=== PATIENT | female | born 1960 | race Caucasian/White ===

== ENCOUNTER 2023-07-21 11:41 | Inpatient (IN) ==
[2023-07-21 12:45] LABS: Hematocrit (blood only) 37.6 % (37.0-47.0); Hemoglobin 12.6 g/dl (12.0-16.0); Mean Corpuscular Hgb Conc 33.5 g/dL (32.0-36.0); Mean Corpuscular Volume 86.4 fL (80.0-100.0); Mean Platelet Volume 9.5 fL (9.4-12.4); Platelet Count 246 K/uL (130-400); RDW Coefficient of Variation 13.6 % (11.5-14.5); RDW Standard Deviation 43.2 fL (36.4-46.3); Red Blood Count 4.35 M/uL (4.20-5.40); White Blood Count 3.34 K/ul (4.8-10.8)
--- NOTE | 2023-07-21 12:48 | XRay Report ---
XR chest 1V not portable CLINICAL HISTORY: Chest pain, nonspecific TECHNIQUE: Single frontal radiograph of the chest was obtained. Comparison: None available at the time of this dictation. FINDINGS: No lines and tubes are seen. The cardiomediastinal silhouette is normal. Reticular interstitial opaci ties are seen. No evidence of pleural effusion or pneumothorax. IMPRESSION: Reticular interstitial opacities are nonspecific. Interstitial edema or bronchitis cannot be excluded . ACT 112: Negative or not required by law. Electronically signed by: Mark Lopez M.D. 07/21/2023 12:47 PM
[2023-07-21 13:07] LABS: Alanine Aminotransferase 10 U/L (7-52); Albumin Globulin Ratio 1.1 (0.9-2); Alkaline Phosphatase 94 U/L (34-104); Anion Gap 8 (3-11); Aspartate Aminotransferase 21 U/L (13-39); BUN Creatinine Ratio 10.1 (10-20); Bilirubin,Total 0.5 mg/dl (0.2-1.0); Blood Urea Nitrogen 7 mg/dl (6-23); Calcium 9.1 mg/dl (8.6-10.3); Carbon Dioxide 23 mmol/L (21-32); Chloride 106 mmol/L (98-107); Est GFR (African American) 106.6 ml/min; Globulin 3.8 gm/dl (2.5-4.0); Glucose 105 mg/dl (70-99(Fasting)); Sodium 137 mmol/L (136-145); Total Protein 7.8 gm/dl (6.0-8.3)
[2023-07-21 13:08] LABS: INR 3.3 (0.9-1.1); Partial Thromboplastin Ratio 1.7; Partial Thromboplastin Time 49 Seconds (21-31); Prothrombin Time 33.2 Seconds (9.0-12.0)
[2023-07-21 13:13] LABS: Troponin I High Sensitivity 3.9 pg/ml (0-14)
[2023-07-21 13:18] LABS: Basophils # (auto) 0.02 K/uL (0.00-0.20); Basophils % (auto) 0.6 %; Immature Granulocytes # (auto) 0.01 K/uL (0.01-0.20); Immature Granulocytes % (auto) 0.3 %; Monocytes # (auto) 0.23 K/uL (0.11-0.59); Monocytes % (auto) 6.9 %; Neutrophils # (auto) 2.18 K/uL (1.40-6.50); Neutrophils % (auto) 65.2 %; Polychromasia 1+; Tear Drop Cells 1+
[2023-07-21] MEDS ORDERED: FUROSEMIDE 40 MG/4 ML VIAL IV ONE (13:40)
--- NOTE | 2023-07-21 13:56 | Electrocardiogram Report ---
Test Reason : Blood Pressure : / mmHG Vent. Rate : 096 BPM Atrial Rate : 096 BPM P-R Int : 150 ms QRS Dur : 112 ms QT Int : 378 ms P-R-T Axes : 044 079 006 degrees QTc Int : 477 ms Normal sinus rhythm Right bundle branch block Abnormal ECG No previous ECGs available Confirmed by Hernan Meléndez ([id number]) on 07/21/2023 1:55:25 PM Referred By: Confirmed By:Hernan Meléndez
[2023-07-21] MEDS ORDERED: MAGNESIUM HYDROXIDE SUSP 30 ML UDC PO PRN (15:32)
[2023-07-21] MEDS ORDERED: ONDANSETRON INJ 2 MG/ML 2 ML VIAL IV PRN (15:32)
[2023-07-21] MEDS ORDERED: ALUMINUM/MAGNESIUM SUSP 30 ML UDC PO PRN (15:32)
[2023-07-21] MEDS ORDERED: ACETAMINOPHEN 325 MG TAB PO PRN (15:32)
[2023-07-21] MEDS ORDERED: POLYETHYLENE (MIRALAX) 17 GM PACK PO PRN (15:32)
--- NOTE | 2023-07-21 16:05 | History & Physical Report ---
Date of Service July 21, 2023 Assessment & Plan (1) COVID: (2) Hypertensive heart disease with chronic diastolic congestive heart failure: (3) PAF (paroxysmal atrial fibrillation): (4) COPD (chronic obstructive pulmonary disease): (5) Type 2 diabetes mellitus: (6) Chronic anticoagulation: (7) Factor V Leiden: (8) Nocturnal hypoxemia: (9) History of deep venous thrombosis: (10) Hypertension: (11) GERD (gastroesophageal reflux disease): (12) Hypothyroidism: Plan Ms. Mohan is a 63 year old female that presented to the ED with complaints of SOB. She has been feeling ill for the last 14 days; but remarks worsening over the past 48 hours with noted orthopnea and hypoxia reportedly SpO2 into the mid 70s. She tested positive for COVID at home 5 days ago. She does report a cough but is not bringing anything up. She typically wears oxygen at night historically and has a home oxygen sensor. She reports that she has not taken her Lasix for the past 5 days as she thought it was making her breathing worse. Additional past medical history includes restrictive lung disease, factor V Leiden, diastolic CHF, paroxysmal A-fib, HTN, [id number]-[id number] diabetes, hypothyroidism, and hyperlipidemia. Also do note patient has a known history of viral myocarditis. Patient notes that she is to have an outpatient sleep study. Chest x-ray negative for acute cardio pulmonary disease. No leukocytosis, otherwise lab work unremarkable. Troponin negative. Last echocardiogram 10/2022 with LV wall motion normal EF 55 to 60% with mild MR/TR grade 1 diastolic dysfunction. Patient denies headache, dizziness, visual or auditory changes, abdominal pain o r tenderness, chest pain or palpitations, recent falls or trauma. On examination, patient is sitting in a recliner chair in no apparent distress. She is able to hold full meaningful conversation and speak in full complete sentences without becoming dyspneic. She has some hypervolemia and lower extremities left greater than right. She claims that her left leg is typically greater than her right, related to her history of DVT. Patient quit smoking last year. No alcohol or recreational drug use. Suspect patient has been noncompliant with her heart failure medications due to illness. No overt concerns for flash pulmonary edema or decompensated heart failure and suspect that she will return to baseline with resuming her diuretics. Will also continue to supportively treat her COVID symptoms with flutter valve, incentive spirometry and Mucinex. Will obtain bio fire for diagnosis confirmation and BNP. We did talk extensively with the patient regarding taking diuretics and reevaluating how she feels with a goal to return home today however she did state that she feels too weak to return home and does not want to get home and come right back to the ER. Suspect admission 1 to 2 days. Hypertensive heart disease with CHF: Generalized weakness: Acute Reportedly has missed five doses of her home Lasix during her illness Suspect causing her symptoms Lasix 40 mg IV ordered in ED; will reassess if add'l dosing is necessary Resume home Lasix dosing tomorrow if able Suspect hospital stay 1-2 days COVID-positive: Acute Tested positive with at home test 07/19/23 Supportive treatment Mucinex p.o. ordered Flutter valve and incentive spirometry ordered Type 2 diabetes mellitus: Chronic Cei-yoxjngo-xojgtwhlu Takes metformin; hold while inpt Check A1C in AM Place on FSBS ACHS SSI HTN: Chronic Takes Lisinopril;continue Paroxysmal A-fib: Chronic Takes metoprolol and Coumadin; continue History of DVT: Chronic anticoagulation: Chronic Takes Coumadin; continue Therapeutic INR 3.3 Factor V Leiden: Follows with heme-onc No anemia noted hemoglobin 12.6 COPD: Uses breakthrough inhalers but does not appear compliant Reportedly to have a sleep study as outpatient Hypothyroidism: Chronic stable Takes levothyroxine; continue GERD: Chronic Takes pantoprazole; continue Disposition: PCP: Dr. Pierce CODE STATUS: Full code VTE prophylaxis: On Coumadin I spent a total of 87 minutes coordinating, documenting, and providing care for this patient excluding time spent in the performance of separately billed services. All of the aforementioned completed while collaborating with the assigned attending physician for a full treatment plan. Please see their addendum for further details. History of Present Illness Chief Complaint: SOB Primary Care Provider: Elaine Pierce DO Ms. Mohan is a 63 year old female that presented to the ED with complaints of SOB. She has been feeling ill for the last 14 days; but remarks worsening over the past 48 hours with noted orthopnea and hypoxia reportedly SpO2 into the mid 70s. She tested positive for COVID at home 5 days ago. She does report a cough but is not bringing anything up. She typically wears oxygen at night historically and has a home oxygen sensor. She reports that she has not taken her Lasix for the past 5 days as she thought it was making her breathing worse. Additional past medical history includes restrictive lung disease, factor V Leiden, diastolic CHF, paroxysmal A-fib, HTN, iao-rvkdjux-lloovvxwk diabetes, hypothyroidism, and hyperlipidemia. Also do note patient has a known history of viral myocarditis. Patient notes that she is to have an outpatient sleep study. Chest x-ray negative for acute cardio pulmonary disease. No leukocytosis, otherwise lab work unremarkable. Troponin negative. Last echocardiogram 10/2022 with LV wall motion normal EF 55 to 60% with mild MR/TR grade 1 diastolic dysfunction. Patient denies headache, dizziness, visual or auditory changes, abdominal pain or tenderness, chest pain or palpitations, recent falls or trauma. On examination, patient is sitting in a recliner chair in no apparent distress. She is able to hold full meaningful conversation and speak in full complete sentences without becoming dyspneic. She has some hypervolemia and lower e xtremities left greater than right. She claims that her left leg is typically greater than her right, related to her history of DVT. Patient quit smoking last year. No alcohol or recreational drug use. Suspect patient has been noncompliant with her heart failure medications due to illness. No overt concerns for flash pulmonary edema or decompensated heart failure and suspect that she will return to baseline with resuming her diuretics. Will also continue to supportively treat her COVID symptoms with flutter valve, incentive spirometry and Mucinex. Will obtain bio fire for d iagnosis confirmation and BNP. We did talk extensively with the patient regarding taking diuretics and reevaluating how she feels with a goal to return home today however she did state that she feels too weak to return home and does not want to get home and come right back to the ER. Suspect admission 1 to 2 days. Patient will be admitted for further evaluation and management. Please see A/P for further details. Allergies Allergy/AdvReac Type Severity Reaction Status Date / Time clindamycin Allergy Hives Verified 05/15/23 12:50 Penicillins Allergy Hives Verified 05/15/23 12:50 Sulfa (Sulfonamide Allergy Hives Verified 05/15/23 12:50 Antibiotics) Home Medications Medication Instructions Recorded Confirmed Type albuterol sulfate 2.5 mg/3 mL 2.5 mg inhalation Q4H PRN 05/15/23 07/21/23 History (0.083 %) solution for nebulization Shortness Of Breath Or Wheezing albuterol sulfate 90 mcg/actuation 2 puff inhalation Q6H PRN 05/15/23 07/21/23 History aerosol inhaler Shortness Of Breath Or Wheezing ascorbic acid (vitamin C) 500 mg 500 mg PO QAM 05/15/23 07/21/23 History chewable tablet cetirizine 10 mg tablet (Zyrtec) 10 mg PO QAM 05/15/23 07/21/23 History cholecalciferol (vitamin D3) 1,250 50,000 unit PO .COMPLEX 05/15/23 07/21/23 History mcg (50,000 unit) capsule fluticasone propionate 50 2 spray intranasal BID 05/15/23 07/21/23 History mcg/actuation nasal spray,suspension furosemide 40 mg tablet (Lasix) 40 mg PO QAM 05/15/23 07/21/23 History gabapentin 600 mg tablet 600 mg PO TID 05/15/23 07/21/23 History ketoconazole 2 % shampoo 1 applic topical Q3D 05/15/23 07/21/23 History levothyroxine 50 mcg tablet 50 mcg PO DAILYBB 05/15/23 07/21/23 History lisinopril 2.5 mg tablet 2.5 mg PO QAM 05/15/23 07/21/23 History lorazepam 1 mg tablet 1 mg PO HS PRN anxiety/sleep 05/15/23 07/21/23 History ondansetron 4 mg disintegrating 4 mg PO Q8H PRN Nausea 05/15/23 07/21/23 History tablet pantoprazole 40 mg tablet,delayed 40 mg PO QAM 05/15/23 07/21/23 History release (Protonix) sucralfate 1 gram tablet (Carafate) 1 g PO TID 05/15/23 07/21/23 History warfarin 5 mg tablet See Rx Instructions PO DAILY 05/15/23 07/21/23 History metoprolol succinate 50 mg 50 mg PO BID #180 tabs 07/13/23 07/21/23 Rx tablet,extended release 24 hr atorvastatin 10 mg tablet 10 mg PO 3XWK 07/21/23 07/21/23 History bacitracin zinc 500 unit/gram 1 applic topical TID 07/21/23 07/21/23 History topical ointment betamethasone dipropionate 0.05 % 1 applic topical HS PRN to hands 07/21/23 07/21/23 History topical ointment as needed famotidine-Ca carb-mag hydrox 10 1 tab PO DAILY 07/21/23 07/21/23 History mg-800 mg-165 mg chewable tablet (Pepcid Complete) metformin 500 mg tablet,extended 500 mg PO QAM 07/21/23 07/21/23 History release 24 hr Past Med/Surg History Medical History (Updated 07/21/23 @ 16:22 by RADHA Nunes) COVID Restrictive lung disease Nocturnal hypoxemia History of deep venous thrombosis Hypertension History of cardiomyopathy Chronic anticoagulation Factor V Leiden PAF (paroxysmal atrial fibrillation) COPD (chronic obstructive pulmonary disease) Type 2 diabetes mellitus History of left heart catheterization 2017 H/O coronary angiogram 2018 Surgical History No pertinent past surgical history Family History Mother Dementia Father COPD (chronic obstructive pulmonary disease) Cirrhosis Sister Pulmonary embolism Brother , [place] Heart failure Brother Mental disorder Social History Smoking Status: Former smoker Tobacco Type: Cigarettes Hx Alcohol Use: No Hx Substance Use: No Preferred Language: Maltese Feels Safe at Home: Yes Review of Systems Review of Systems: Neuro: (-) Falls, trauma, slurred speech HEENT: (-) PAYTON, dizziness, dysphagia, visual or auditory changes CV: (-) CP, palpitations, swelling Resp: (+) SOB GI: (-) appetite changes, N/V/D, bowel changes : (-) urinary changes Skin: (-) rashes Psych: (-) anxiety, depression Physical Exam Physical Exam: See. Dr. Cali's addendum for physical examination findings for lung sounds Neuro: AAOx4, PERRLA, no aphagia, memory changes, CNII-XII grossly intact HEENT: head normocephalic, moist mucus membranes CV: S1/S2, (-) M/G/R, (-) edema, cap refill < 3 seconds. (+) 1 BL LE swelling. L > R leg Resp: On 2LNC GI: Abdomen S/NT/ND, Ax4 bowel sounds, (-) CVA tenderness Musculoskeletal: 5/5 B/L UE strength, 5/5 B/L LE strength. No gait disturbance Skin: (-) rashes , (-) erythema. Psych: euthymic mood Results & Data Results & Data Vital Signs (Past 12 Hours) Vital Signs Temp Pulse Pulse Resp BP BP Pulse Ox 07/21/23 15:16 74 18 123/79 92 07/21/23 15:16 88 L 07/21/23 12:04 86 L 07/21/23 12:04 36.7 C 85 20 134/83 90 O2 Del Method O2 Flow Rate 07/21/23 15:16 Nasal Cannula 2 07/21/23 15:16 Nasal Cannula 0 07/21/23 12:04 Room Air 0 07/21/23 12:04 Nasal Cannula 2 Laboratory Results Short CBC 07/21/23 Range/Units 12:22 WBC 3.34 L (4.8-10.8) K/ul Hgb 12.6 (12.0-16.0) g/dl Hct 37.6 (37.0-47.0) % Plt Count 246 (130-400) K/uL BMP 07/21/23 12:22 Sodium 137 Potassium 4.0 Chloride 106 Carbon Dioxide 23 BUN 7 Creatinine 0.69 Glucose 105 H Calcium 9.1 Liver Function 07/21/23 Range/Units 12:22 Total Bilirubin 0.5 (0.2-1.0) mg/dl AST 21 (13-39) U/L ALT 10 (7-52) U/L Alkaline Phosphatase 94 (34-104) U/L Albumin 4.0 (3.4-5.0) gm/dl Diagnostic Findings Chest X-Ray 07/21/23 12:09 XR chest 1V not portable CLINICAL HISTORY: Chest pain, nonspecific TECHNIQUE: Single frontal radiograph of the chest was obtained. Comparison: None available at the time of this dictation. FINDINGS: No lines and tubes are seen. The cardiomediastinal silhouette is normal. Reticular interstitial opacities are seen. No evidence of pleural effusion or pneumothorax. IMPRESSION: Reticular interstitial opacities are nonspecific. Interstitial edema or bronchitis cannot be excluded. ACT 112: Negative or not required by law. Electronically signed by: Mark Lopez M.D. 07/21/2023 12:47 PM Code Status & VTE Plan Code Status Full code in the event of cardiac respiratory arrest VTE Prophylaxis Plan VTE Prophylaxis will be ordered: Yes Supervising Physician Co-Signing Physician Notes I have seen and discussed the case with the collaborating FORESTRY HUNTER I agree with the above H&P. I have reviewed and confirmed the patients medical history, the findings on physical examination, and the patients diagnosis and treatment plan with Timmy GARCIA and agree with the information documented. In short, Ms. Mohan is a 63 year old woman with past history of acute viral myocarditis 2018, factor IV Leiden, a fib on AC, who is admitted for acute on chronic hypoxic respiratory failure of multifactorial eitology. She reports not taking water pills for 5 days, in addition to copious water intake. She notes increasing SOB over the last few days in conjunction with not taking her lasix. She states she has been COVID positive for 12 days. She reports needing nocturnal O2, but still undergong work up for ANILA. Labs notable for RSV/COVID VS with sats in 80s without o2, but recovers PE General: patient sitting in waiting room, pleasant, on 2L NC CV RRR, no murmur Resp Diminshed breath sounds, no wheezing appreciated, no crackles MSK moving all limbs appropriately Neuro no focal deficits Plan #Acute on chronic resp failure, multifactorial #Acute on chronic HFpEF (EF 55-59% 10/2022) #RSV/COVID infection -IV lasix daily, continue--resume home PO when able improved -Resume home medications -Symptomatic management as above Rest of plan as above
--- NOTE | 2023-07-21 16:09 | Emergency Department Note ---
ED Provider Note History of Present Illness Chief Complaint: Shortness of Breath/Dyspnea Time Seen by Provider: 07/21/23 13:03 Source: patient Mode of arrival: EMS Limitations: no limitations This patient is a 63-year-old female who presents to the emergency department via EMS for evaluation of shortness of breath. Patient had a positive home COVID-19 test last week. At that time she was having some headaches and fevers. She states that over the past several days she has become more short of breath with some burning in her chest. She states that she becomes very short of breath with ambulation, and after walking to another room her oxygen levels dropped into the 70s. She wears oxygen at night due to possible sleep apnea which is currently being evaluated as an outpatient. She has been wearing it all day due to the shortness of breath. She denies any further fevers. Patient has a history of CHF and takes Lasix but has not been taking it for a few days because she feels she is dehydrated. Home Medications Medication Instructions Recorded Confirmed Type albuterol sulfate 2.5 mg/3 mL 2.5 mg inhalation Q4H PRN 05/15/23 07/21/23 History (0.083 %) solution for nebulization Shortness Of Breath Or Wheezing albuterol sulfate 90 mcg/actuation 2 puff inhalation Q6H PRN 05/15/23 07/21/23 History aerosol inhaler Shortness Of Breath Or Wheezing ascorbic acid (vitamin C) 500 mg 500 mg PO QAM 05/15/23 07/21/23 History chewable tablet cetirizine 10 mg tablet (Zyrtec) 10 mg PO QAM 05/15/23 07/21/23 History cholecalciferol (vitamin D3) 1,250 50,000 unit PO .COMPLEX 05/15/23 07/21/23 History mcg (50,000 unit) capsule fluticasone propionate 50 2 spray intranasal BID 05/15/23 07/21/23 History mcg/actuation nasal spray,suspension furosemide 40 mg tablet (Lasix) 40 mg PO QAM 05/15/23 07/21/23 History gabapentin 600 mg tablet 600 mg PO TID 05/15/23 07/21/23 History ketoconazole 2 % shampoo 1 applic topical Q3D 05/15/23 07/21/23 History levothyroxine 50 mcg tablet 50 mcg PO DAILYBB 05/15/23 07/21/23 History lisinopril 2.5 mg tablet 2.5 mg PO QAM 05/15/23 07/21/23 History lorazepam 1 mg tablet 1 mg PO HS PRN anxiety/sleep 05/15/23 07/21/23 History ondansetron 4 mg disintegrating 4 mg PO Q8H PRN Nausea 05/15/23 07/21/23 History tablet pantoprazole 40 mg tablet,delayed 40 mg PO QAM 05/15/23 07/21/23 History release (Protonix) sucralfate 1 gram tablet (Carafate) 1 g PO TID 05/15/23 07/21/23 History warfarin 5 mg tablet See Rx Instructions PO DAILY 05/15/23 07/21/23 History atorvastatin 10 mg tablet 10 mg PO 3XWK 07/21/23 07/21/23 History bacitracin zinc 500 unit/gram 1 applic topical TID 07/21/23 07/21/23 History topical ointment betamethasone dipropionate 0.05 % 1 applic topical HS PRN to hands 07/21/23 07/21/23 History topical ointment as needed famotidine-Ca carb-mag hydrox 10 1 tab PO DAILY 07/21/23 07/21/23 History mg-800 mg-165 mg chewable tablet (Pepcid Complete) metformin 500 mg tablet,extended 500 mg PO QAM 07/21/23 07/21/23 History release 24 hr L.acidop,casei,lactis,rham-B.lact,navid 2 cap PO DAILY #20 caps 07/25/23 Rx 625 mg (10 billion cell) capsule (Advanced Probiotic) doxycycline hyclate 100 mg capsule 100 mg PO BID #5 caps 07/25/23 Rx metoprolol succinate 25 mg 25 mg PO BID #60 tabs 07/25/23 Rx tablet,extended release 24 hr prednisone 20 mg tablet 20 mg PO DAILY 3 days #3 tabs 07/25/23 Rx Allergies Allergy/AdvReac Type Severity Reaction Status Date / Time clindamycin Allergy Hives Verified 05/15/23 12:50 Penicillins Allergy Hives Verified 05/15/23 12:50 Sulfa (Sulfonamide Allergy Hives Verified 05/15/23 12:50 Antibiotics) Past Med/Surg History Medical History (Updated 07/26/23 @ 01:28 by Diane Lawson PA-C) COVID Restrictive lung disease Nocturnal hypoxemia History of deep venous thrombosis Hypertension History of cardiomyopathy Chronic anticoagulation Factor V Leiden PAF (paroxysmal atrial fibrillation) COPD (chronic obstructive pulmonary disease) Type 2 diabetes mellitus History of left heart catheterization 2017 H/O coronary angiogram 2018 Surgical History No pertinent past surgical history Family History Mother Dementia Father COPD (chronic obstructive pulmonary disease) Cirrhosis Sister Pulmonary embolism Brother , [place] Heart failure Brother Mental disorder Social History Smoking Status: Former smoker Tobacco Type: Cigarettes Second Hand Exposure: No; Do You Dip or Chew Tobacco: No; Hx Alcohol Use: No Hx Substance Use: No Preferred Language: Wallisian Communication Ability: Effective Patient Service Associate Required: No Beliefs That Will Affect Care: None Current Living Situation: Alone Feels Safe at Home: Yes Safety Concerns: Feels Safe At This Time Assistive Devices: Oxygen - at Night Physical Exam Vital Signs Vital Signs - 24 hr 07/21/23 12:04 07/21/23 12:04 07/21/23 15:16 Temperature 36.7 C Temperature Source Temporal Artery Scan Pulse Rate 85 Pulse Rate [Left Apical] Respiratory Rate 20 Respiratory Effort / Characteristics Respiratory Depth Respiratory Pattern Blood Pressure 134/83 Blood Pressure [Right Arm] Blood Pressure Mean 100 Blood Pressure Mean [Right Arm] Blood Pressure Position [Right Arm] Pulse Oximetry 90 86 L 88 L Oxygen Delivery Method Nasal Cannula Room Air Nasal Cannula Oxygen Flow Rate 2 0 0 Sepsis Recent Fever Within 48 Hours No Sepsis New/Unexplained Change in Mental Status N/A Sepsis Action Taken by Nursing No Action Required Oxygen Flow Rate - Titration 2 2 Pulse Oximetry Post Tiitration 90 92 07/21/23 15:16 Temperature Temperature Source Pulse Rate Pulse Rate [Left Apical] 74 Respiratory Rate 18 Respiratory Effort / Characteristics Non-Labored Spontaneous Respiratory Depth Normal Respiratory Pattern Regular Blood Pressure Blood Pressure [Right Arm] 123/79 Blood Pressure Mean Blood Pressure Mean [Right Arm] 93 Blood Pressure Position [Right Arm] Lying Pulse Oximetry 92 Oxygen Delivery Method Nasal Cannula Oxygen Flow Rate 2 Sepsis Recent Fever Within 48 Hours Sepsis New/Unexplained Change in Mental Status Sepsis Action Taken by Nursing Oxygen Flow Rate - Titration Pulse Oximetry Post Tiitration VITALS: Vitals are noted on the nurse's note and reviewed by myself. GENERAL: This is a 63-year-old female, in no acute distress, well-developed well-nourished. SKIN: The skin was without rashes. EARS: External auditory canals clear, tympanic membranes pearly solis without erythema or effusion bilaterally. EYES: Pupils equal round and reactive to light and accommodation. MOUTH: Mucous membranes moist. Tonsils are not enlarged. Pharynx without erythema or exudate. NECK: Supple without nuchal rigidity. No lymphadenopathy. HEART: Regular rate and rhythm without murmurs gallops or rubs. LUNGS: Crackles in bilateral bases. NEURO: Patient was alert and oriented to person place and time. Course Administered Medications Discontinued Medications Atorvastatin Calcium (Atorvastatin 10 Mg Tab) 10 mg PO [id number]@0900 [facility] Stop: 08/20/23 16:44 Last Admin: 07/25/23 07:48 Dose: 10 mg Documented By: Admin: 07/23/23 08:16 Dose: 10 mg Documented By: Admin: 07/21/23 17:51 Dose: Not Given Documented By: GIA Cetirizine HCl (Cetirizine Hcl 10 Mg Tablet) 10 mg PO QAM [facility] Stop: 08/22/23 08:59 Last Admin: 07/25/23 07:48 Dose: 10 mg Documented By: Admin: 07/24/23 08:39 Dose: 10 mg Documented By: Admin: 07/23/23 08:16 Dose: 10 mg Documented By: AZUL Doxycycline Hyclate (Doxycycline Hyclate 100 Mg Cap) 100 mg PO BID [facility] Stop: 07/29/23 12:44 Last Admin: 07/25/23 07:49 Dose: 100 mg Documented By: Admin: 07/24/23 20:26 Dose: 100 mg Documented By: Admin: 07/24/23 08:41 Dose: 100 mg Documented By: Admin: 07/23/23 21:16 Dose: 100 mg Documented By: Admin: 07/23/23 08:13 Dose: 100 mg Documented By: Admin: 07/22/23 20:40 Dose: 100 mg Documented By: Admin: 07/22/23 13:15 Dose: 100 mg Documented By: HENRI Fluticasone Propionate (Fluticasone Propionate Na Spr 16 Gm Btl) 2 sprays NA BID [facility] Stop: 08/20/23 20:59 Last Admin: 07/25/23 07:47 Dose: Not Given Documented By: Admin: 07/24/23 20:24 Dose: Not Given Documented By: Admin: 07/24/23 08:40 Dose: Not Given Documented By: Admin: 07/23/23 21:16 Dose: 2 sprays Documented By: Admin: 07/23/23 08:14 Dose: 2 sprays Documented By: Admin: 07/22/23 23:36 Dose: Not Given Documented By: Admin: 07/22/23 08:14 Dose: Not Given Documented By: Admin: 07/21/23 21:01 Dose: Not Given Documented By: BRENDAN Furosemide (Furosemide 40 Mg/4 Ml Vial) 40 mg IV ONE ONE Stop: 07/21/23 13:41 Last Admin: 07/21/23 15:15 Dose: 40 mg Documented By: GIA Furosemide (Furosemide 40 Mg/4 Ml Vial) 40 mg IV QAM [facility] Stop: 08/21/23 08:59 Last Admin: 07/22/23 08:10 Dose: 40 mg Documented By: HENRI Furosemide (Furosemide 40 Mg Tab) 40 mg PO QAM [facility] Stop: 08/22/23 08:59 Last Admin: 07/25/23 07:49 Dose: 40 mg Documented By: Admin: 07/24/23 08:41 Dose: 40 mg Documented By: Admin: 07/23/23 10:56 Dose: 40 mg Documented By: AZUL Gabapentin (Gabapentin 600 Mg Tab) 600 mg PO TID [facility] Stop: 08/20/23 20:59 Last Admin: 07/25/23 13:12 Dose: 600 mg Documented By: Admin: 07/25/23 07:49 Dose: 600 mg Documented By: Admin: 07/24/23 20:26 Dose: 600 mg Documented By: Admin: 07/24/23 11:34 Dose: 600 mg Documented By: Admin: 07/24/23 08:40 Dose: 600 mg Documented By: Admin: 07/23/23 21:17 Dose: 600 mg Documented By: Admin: 07/23/23 13:30 Dose: 600 mg Documented By: Admin: 07/23/23 08:13 Dose: 600 mg Documented By: Admin: 07/22/23 20:40 Dose: 600 mg Documented By: Admin: 07/22/23 13:15 Dose: 600 mg Documented By: Admin: 07/22/23 08:18 Dose: 600 mg Documented By: Admin: 07/21/23 20:59 Dose: 600 mg Documented By: BRENDAN Guaifenesin (Guaifenesin 600 Mg Tabcr) 1,200 mg PO Q12 [facility] Stop: 08/20/23 20:59 Last Admin: 07/25/23 07:47 Dose: 1,200 mg Documented By: Admin: 07/24/23 20:26 Dose: 1,200 mg Documented By: Admin: 07/24/23 08:41 Dose: 1,200 mg Documented By: Admin: 07/23/23 21:17 Dose: 1,200 mg Documented By: Admin: 07/23/23 10:55 Dose: 1,200 mg Documented By: Admin: 07/22/23 20:39 Dose: 1,200 mg Documented By: Admin: 07/22/23 08:18 Dose: 1,200 mg Documented By: Admin: 07/21/23 20:59 Dose: 1,200 mg Documented By: BRENDAN Dexamethasone 6 mg/ Syringe 1.5 mls @ 1 mls/min IV DAILY [facility] Stop: 08/01/23 09:29 Last Admin: 07/25/23 07:52 Dose: 1 mls/min Documented By: Admin: 07/24/23 08:38 Dose: 1 mls/min Documented By: Admin: 07/23/23 08:17 Dose: 1 mls/min Documented By: Admin: 07/22/23 10:33 Dose: 1 mls/min Documented By: HENRI Lactobacillus Acidophilus (Advanced Probiotic 1250 Mg Capsule) 2 cap PO DAILY [facility] Stop: 08/22/23 08:59 Last Admin: 07/25/23 07:48 Dose: 2 cap Documented By: Admin: 07/24/23 08:38 Dose: 2 cap Documented By: Admin: 07/23/23 08:12 Dose: 2 cap Documented By: AZUL Levothyroxine Sodium (Levothyroxine Sodium 50 Mcg Tablet) 50 mcg PO DAILYBB [facility] Stop: 08/21/23 06:29 Last Admin: 07/25/23 05:32 Dose: 50 mcg Documented By: Admin: 07/24/23 05:45 Dose: 50 mcg Documented By: Admin: 07/23/23 08:10 Dose: Not Given Documented By: Admin: 07/22/23 06:07 Dose: 50 mcg Documented By: BRENDAN Metoprolol Succinate (Metoprolol Succ 50mg Ext Rel Tab) 50 mg PO BID [facility] Stop: 08/20/23 20:59 Last Admin: 07/23/23 08:13 Dose: Not Given Documented By: Admin: 07/22/23 20:40 Dose: 50 mg Documented By: Admin: 07/22/23 08:18 Dose: 50 mg Documented By: Admin: 07/21/23 21:00 Dose: 50 mg Documented By: BRENDAN Metoprolol Succinate (Metoprolol Succ 25mg Ext Rel Tab) 25 mg PO BID [facility] Stop: 08/22/23 08:59 Last Admin: 07/25/23 07:47 Dose: 25 mg Documented By: Admin: 07/24/23 20:25 Dose: Not Given Documented By: Admin: 07/24/23 08:39 Dose: Not Given Documented By: Admin: 07/23/23 21:21 Dose: 25 mg Documented By: Admin: 07/23/23 08:43 Dose: Not Given Documented By: AZUL Pantoprazole Sodium (Pantoprazole 40 Mg Tab) 40 mg PO QAM [facility] Stop: 08/21/23 08:59 Last Admin: 07/25/23 07:48 Dose: 40 mg Documented By: Admin: 07/24/23 08:38 Dose: 40 mg Documented By: Admin: 07/23/23 08:13 Dose: 40 mg Documented By: Admin: 07/22/23 08:10 Dose: 40 mg Documented By: HENRI Potassium Chloride (Potassium Chloride Crtab 20 Meq Tabcr) 20 meq PO ONE ONE Stop: 07/24/23 09:32 Last Admin: 07/24/23 09:52 Dose: 20 meq Documented By: SHERRI Potassium Phosphate (Pot Phosphate Monobasic W/ Sod Tab) 1 tab PO QID [facility] Stop: 07/25/23 12:59 Last Admin: 07/24/23 08:40 Dose: 1 tab Documented By: Admin: 07/23/23 21:18 Dose: 1 tab Documented By: Admin: 07/23/23 16:27 Dose: 1 tab Documented By: Admin: 07/23/23 13:30 Dose: 1 tab Documented By: AZUL Sucralfate (Sucralfate 1 Gm Tab) 1 gm PO TIDM [facility] Stop: 08/21/23 13:59 Last Admin: 07/25/23 12:05 Dose: 1 gm Documented By: Admin: 07/25/23 07:49 Dose: 1 gm Documented By: Admin: 07/24/23 15:47 Dose: 1 gm Documented By: Admin: 07/24/23 11:34 Dose: 1 gm Documented By: Admin: 07/24/23 08:40 Dose: 1 gm Documented By: Admin: 07/23/23 16:27 Dose: 1 gm Documented By: Admin: 07/23/23 10:58 Dose: 1 gm Documented By: Admin: 07/23/23 08:12 Dose: 1 gm Documented By: Admin: 07/22/23 17:09 Dose: 1 gm Documented By: Admin: 07/22/23 13:15 Dose: 1 gm Documented By: HENRI Warfarin Sodium (Warfarin Sod 5 Mg Tab) 5 mg PO [id number]@1600 [facility] Stop: 08/21/23 15:59 Last Admin: 07/24/23 15:47 Dose: 5 mg Documented By: Admin: 07/23/23 16:27 Dose: 5 mg Documented By: Admin: 07/22/23 17:09 Dose: 5 mg Documented By: KALEY Medical Decision Making Differential Diagnosis Reactive airway disease, pneumonia, pneumothorax, COPD, CHF, infections, cardiac ischemia, pulmonary embolism, musculoskeletal, gastrointestinal, as well as other pathologies. Home Medications was personally reviewed by me Laboratory Data Attestation: I reviewed the patient's lab results. 07/23/23 05:32 07/25/23 05:27 Lab Results 07/21/23 07/21/23 07/21/23 Range/Units 12:22 15:20 15:20 WBC 3.34 L (4.8-10.8) K/ul RBC 4.35 (4.20-5.40) M/uL Hgb 12.6 (12.0-16.0) g/dl Hct 37.6 (37.0-47.0) % MCV 86.4 (80.0-100.0) fL MCH 29.0 (25.0-34.0) pg MCHC 33.5 (32.0-36.0) g/dL RDW Std Deviation 43.2 (36.4-46.3) fL RDW Coeff of Scout 13.6 (11.5-14.5) % Plt Count 246 (130-400) K/uL MPV 9.5 (9.4-12.4) fL Immature Gran % (Auto) 0.3 % Neut % (Auto) 65.2 % Lymph % (Auto) 24.0 % [place] % (Auto) 6.9 % Eos % (Auto) 3.0 % Baso % (Auto) 0.6 % Neut # (Auto) 2.18 (1.40-6.50) K/uL Lymph # (Auto) 0.80 L (1.20-3.40) K/uL [place] # (Auto) 0.23 (0.11-0.59) K/uL Eos # (Auto) 0.10 (0.00-0.50) K/uL Baso # (Auto) 0.02 (0.00-0.20) K/uL Immature Gran # (Auto) 0.01 (0.01-0.20) K/uL Polychromasia 1+ Tear Drop Cells 1+ PT 33.2 H (9.0-12.0) Seconds INR 3.3 H (0.9-1.1) APTT 49 H (21-31) Seconds PTT Ratio 1.7 Sodium 137 (136-145) mmol/L Potassium 4.0 (3.5-5.1) mmol/L Chloride 106 (98-107) mmol/L Carbon Dioxide 23 (21-32) mmol/L Anion Gap 8 (3-11) BUN 7 (6-23) mg/dl Creatinine 0.69 (0.6-1.2) mg/dl Est Cr Clr Drug Dosing Not Reportable Est GFR ( Amer) 106.6 ml/min Est GFR (Non-Af Amer) 92.0 ml/min BUN/Creatinine Ratio 10.1 (10-20) Glucose 105 H (70-99(Fasting)) mg/dl Calcium 9.1 (8.6-10.3) mg/dl Phosphorus 2.2 L (2.5-4.9) mg/dl Magnesium 2.1 (1.7-2.4) mg/dl Total Bilirubin 0.5 (0.2-1.0) mg/dl AST 21 (13-39) U/L ALT 10 (7-52) U/L Alkaline Phosphatase 94 (34-104) U/L Troponin I High Sens 3.9 (0-14) pg/ml Total Protein 7.8 (6.0-8.3) gm/dl Albumin 4.0 (3.4-5.0) gm/dl Globulin 3.8 (2.5-4.0) gm/dl Albumin/Globulin Ratio 1.1 (0.9-2) Procalcitonin < 0.05 (0-0.5) ng/ml Adenovirus (PCR) Not Detected (NotDetected) B. pertussis DNA (PCR) Not Detected (NotDetected) B.parapertussis DNA PCR Not Detected (NotDetected) C. pneumoniae DNA (PCR) Not Detected (NotDetected) Coronavirus OC43 (PCR) Not Detected (NotDetected) Coronavirus HKU1 (PCR) Not Detected (NotDetected) Coronavirus 229E (PCR) Not Detected (NotDetected) SARS-CoV-2 (PCR) Cancelled DETECTED A* Coronavirus NL63 (PCR) Not Detected (NotDetected) Human Metapneumovir PCR Not Detected (NotDetected) Influenza Type A (PCR) Cancelled Influenza Type B (PCR) M. pneumoniae (PCR) (NotDetected) Parainfluenza 1 (PCR) (NotDetected) Parainfluenza 2 (PCR) (NotDetected) Parainfluenza 3 (PCR) (NotDetected) Parainfluenza 4 (PCR) (NotDetected) RSV (RT-PCR) RSV (PCR) (NotDetected) Entero/Rhino (PCR) (NotDetected) 07/21/23 07/21/23 Range/Units 15:20 15:20 WBC (4.8-10.8) K/ul RBC (4.20-5.40) M/uL Hgb (12.0-16.0) g/dl Hct (37.0-47.0) % MCV (80.0-100.0) fL MCH (25.0-34.0) pg MCHC (32.0-36.0) g/dL RDW Std Deviation (36.4-46.3) fL RDW Coeff of Scout (11.5-14.5) % Plt Count (130-400) K/uL MPV (9.4-12.4) fL Immature Gran % (Auto) % Neut % (Auto) % Lymph % (Auto) % [place] % (Auto) % Eos % (Auto) % Baso % (Auto) % Neut # (Auto) (1.40-6.50) K/uL Lymph # (Auto) (1.20-3.40) K/uL [place] # (Auto) (0.11-0.59) K/uL Eos # (Auto) (0.00-0.50) K/uL Baso # (Auto) (0.00-0.20) K/uL Immature Gran # (Auto) (0.01-0.20) K/uL Polychromasia Tear Drop Cells PT (9.0-12.0) Seconds INR (0.9-1.1) APTT (21-31) Seconds PTT Ratio Sodium (136-145) mmol/L Potassium (3.5-5.1) mmol/L Chloride (98-107) mmol/L Carbon Dioxide (21-32) mmol/L Anion Gap (3-11) BUN (6-23) mg/dl Creatinine (0.6-1.2) mg/dl Est Cr Clr Drug Dosing Est GFR ( Amer) ml/min Est GFR (Non-Af Amer) ml/min BUN/Creatinine Ratio (10-20) Glucose (70-99(Fasting)) mg/dl Calcium (8.6-10.3) mg/dl Phosphorus (2.5-4.9) mg/dl Magnesium (1.7-2.4) mg/dl Total Bilirubin (0.2-1.0) mg/dl AST (13-39) U/L ALT (7-52) U/L Alkaline Phosphatase (34-104) U/L Troponin I High Sens (0-14) pg/ml Total Protein (6.0-8.3) gm/dl Albumin (3.4-5.0) gm/dl Globulin (2.5-4.0) gm/dl Albumin/Globulin Ratio (0.9-2) Procalcitonin (0-0.5) ng/ml Adenovirus (PCR) (NotDetected) B. pertussis DNA (PCR) (NotDetected) B.parapertussis DNA PCR (NotDetected) C. pneumoniae DNA (PCR) (NotDetected) Coronavirus OC43 (PCR) (NotDetected) Coronavirus HKU1 (PCR) (NotDetected) Coronavirus 229E (PCR) (NotDetected) SARS-CoV-2 (PCR) Coronavirus NL63 (PCR) (NotDetected) Human Metapneumovir PCR (NotDetected) Influenza Type A (PCR) Not Detected Influenza Type B (PCR) Cancelled Not Detected M. pneumoniae (PCR) Not Detected (NotDetected) Parainfluenza 1 (PCR) Not Detected (NotDetected) Parainfluenza 2 (PCR) Not Detected (NotDetected) Parainfluenza 3 (PCR) Not Detected (NotDetected) Parainfluenza 4 (PCR) Not Detected (NotDetected) RSV (RT-PCR) Cancelled RSV (PCR) Not Detected (NotDetected) Entero/Rhino (PCR) DETECTED A* (NotDetected) Imaging Data Attestation: I personally reviewed and interpreted this imaging study as follows: Radiologist's Impression: Chest X-Ray 07/21/23 12:09 XR chest 1V not portable CLINICAL HISTORY: Chest pain, nonspecific TECHNIQUE: Single frontal radiograph of the chest was obtained. Comparison: None available at the time of this dictation. FINDINGS: No lines and tubes are seen. The cardiomediastinal silhouette is normal. Reticular interstitial opacities are seen. No evidence of pleural effusion or pneumothorax. IMPRESSION: Reticular interstitial opacities are nonspecific. Interstitial edema or bronchitis cannot be excluded. ACT 112: Negative or not required by law. Electronically signed by: Mark Lopez M.D. 07/21/2023 12:47 PM ECG Data Attestation: I personally reviewed and interpreted this ECG as follows: Indication: + SOB/dyspnea Rate (beats per minute): 96 Rhythm: + normal sinus ECG Intervals/blocks: + Right Bundle branch block Comparison ECG Date: no prior available MDM Narrative Patient is a 63-year-old female who presents to the emergency department for evaluation of shortness of breath. Patient recently tested positive for COVID- 19 she has been hypoxic at home, requiring oxygen during the day when she normally only uses it at night. I do suspect there is an element of fluid overload. She has not been taking her Lasix over the past few days. She was given a dose of IV Lasix and placed on oxygen. [facility] for further care. Patient was agreeable to admission. Impression Hypoxia, COVID-19 Discharge Plan Visit Data Chief Complaint: Shortness of Breath/Dyspnea ED Provider: Cy Emmanuel ED Midlevel Provider: Diane Lawson Discharge Problem: Hypoxia, COVID-19 Patient Disposition: Admitted As Inpatient Discharge Instructions Interventions: ED Discharge Assessment Last Done: 07/21/23 17:03
--- NOTE | 2023-07-21 17:25 | Emergency Department Note ---
ED Visit Note I was consulted by the Advanced Practice Provider. I personally made/approved the management plan and take responsibility for the patient management. I performed a substantive portion of the visit. This includes the aspects of: This patient was recently diagnosed with COVID and came in feeling short of breath. She does have a history of COPD. She was hypoxemic she also may have some CHF component was given some Lasix as well. Chest x-june per my independent interpretation there is a congestive changes [facility] and she will be admitted/observed for further treatment and evaluation . Chest chest x-ray as my
[2023-07-21 17:38] LABS: Magnesium 2.1 mg/dl (1.7-2.4); Phosphorus 2.2 mg/dl (2.5-4.9)
[2023-07-21] MEDS: ATORVASTATIN 10 MG TAB PO SCH (17:51)
--- OUTSIDE RECORDS SUMMARY | 2023-07-21 18:10 | External Medical Summary | Summary of Care ---
Author Name Unknown Organization [facility] Address [address] [place] [address] Phone [phone] Care Team Providers Care Substation Operator Conversion Name Role Phone BlacktamyElaine DO Primary Care Provider Reason for Visit * Reason Comments Acute Encounter Details Date Type Department Care Team (Late st Contact Info) Description 07/17/2023 11:00 AM EST Telemedicine Family Medicine [address] [phone] Sudarshan North MD [address] [place] [address] [place] [address] COVID-19* Allergies Active Allergy Reactions Criticality Noted Date Comments Clindamycin Hives 09/06/2019 Penicillins Hives 02/20/2012 Sulfa Antibiotics Hives 02/20/2012 documented as of this encounter (statuses as of 07/17/2023) Medications Medication Sig Dispensed Refills Start Date End Date Status Nebulizer/Tubing/Genoveva thpiece Kit J44.9 1 Kit 0 01/18/2021 Active Vitamin C 500 MG Oral Tablet Chewable Take 1 Tablet by mouth in the morning. 30 Tablet 5 07/01/2022 Active Warfarin Sodium 5 MG Oral Tablet (Coumadin)Indication s:Atypical atrial flutter (HCC) TAKE 1/2 TABLET BY MOUTH ON FRIDAY & FRIDAY, AND 1 TAB ALL OTHER DAYS OF THE WEEK 80 Tablet 3 09/25/2022 Active Fluticasone Propionate 50 MCG/ACT Nasal SuspensionIndication s:Rhinitis, unspecified type Administer 2 Sprays into each nostril in the morning and 2 Sprays in the evening. May reduce down to daily once congestion improved.. 9.9 mL 3 11/04/2022 Active Albuterol Sulfate (2.5 MG/3ML) 0.083% Inhalation Nebulization Solution (Proventil) Inhale 1 Vial via nebulizer every 4 hours as needed for Wheezing. , use in place of rescue inhaler. 360 mL 5 11/05/2022 Active Sucralfate 1 GM Oral Tablet (Carafate)Indication s:Hiatal hernia,Heartburn,Lazaro sea Take 1 Tablet by mouth in the morning and 1 Tablet at noon and 1 Tablet before bedtime. 270 Tablet 1 12/24/2022 Active Lisinopril 2.5 MG Oral Tablet (Prinivil) Take 1 Tablet by mouth in the morning. 90 Tablet 3 12/23/2022 Active oxygen IN GAS 2 LPM via NC during hours of sleep 1 Each 0 01/02/2023 Active tiZANidine HCl 2 MG Oral Tablet (Zanaflex)Indication s:Chronic bilateral low back pain with left-sided sciatica Take 1 Tablet by mouth every 6 hours as needed for Muscle spasms. 30 Tablet 0 01/09/2023 Active Betamethasone Dipropionate 0.05 % External OintmentIndications: Dyshidrotic eczema Apply to hands daily at bed time as needed 45 g 0 01/08/2023 Active metFORMIN HCl ER 500 MG Oral Tablet Extended Release 24 Hour (Glucophage XR)Indications:Predi abetes Take 1 Tablet by mouth in the morning. 90 Tablet 1 01/22/2023 Active Pantoprazole Sodium 40 MG Oral Tablet Delayed Release (Protonix)Indication s:Other iron deficiency anemia,Gastroesophag eal reflux disease TAKE 1 TABLET BY MOUTH ONCE DAILY IN THE MORNING 90 Tablet 3 01/22/2023 Active Cetirizine HCl 10 MG Oral Tablet (ZyrTEC) TAKE 1 TABLET BY MOUTH ONCE DAILY IN THE MORNING 90 Tablet 3 02/17/2023 Active Albuterol Sulfate HFA 108 (90 Base) MCG/ACT Inhalation Aerosol SolutionIndications: Pulmonary emphysema, unspecified emphysema type (HCC) Inhale 2 Puffs by mouth every 6 hours as needed for Shortness of Breath or Wheezing. 54 g 3 03/21/2023 Active Metoprolol Succinate ER 50 MG Oral Tablet Extended Release 24 Hour (toPROL XL)Indications:Fatig ue, unspecified type,Palpitations,Di lated cardiomyopathy ([facility]),Chronic diastolic CHF (congestive heart failure) ([facility]),RBBB (right bundle branch block),Factor V Leiden ([facility]),SVT (supraventricular tachycardia) Take 1 Tablet by mouth in the morning and 1 Tablet before bedtime. 180 Tablet 3 03/31/2023 Active Gabapentin 600 MG Oral Tablet (Neurontin)Indicatio ns:Numbness and tingling of both feet,Dysesthesia TAKE 1 TABLET BY MOUTH 3 TIMES DAILY 180 Tablet 3 05/20/2023 Active Furosemide 40 MG Oral Tablet (Lasix)Indications:H eart failure, systolic, due to idiopathic cardiomyopathy ([facility]) Take 1 Tablet by mouth in the morning. Take an additional tablet as needed for weight gain of 2-3 lbs overnight, increased edema.. 130 Tablet 3 05/19/2023 Active Thiamine HCl 100 MG Oral Tablet (vitamin B-1) Take 1 Tablet by mouth in the morning. 0 Active Ammonium Lactate 12 % External Lotion (Lac-Hydrin) Apply topically to affected area as needed for Dry Skin. Apply topically to affected area 2 times a day 0 Active Benzoyl Peroxide Wash 10 % External Liquid (Benzoyl Peroxide) Apply topically to affected area daily. Apply topically to affected area daily. Apply to groin in shower, leave on for five minutes and wash off 0 Active Ketoconazole 2 % External Shampoo (Nizoral) Apply topically to affected area every 3 days. Apply to scalp, scrub in and leave on for 5 minutes then wash off 0 Active Mupirocin 2 % External Ointment (Bactroban) Apply topically to affected area 3 times a day . Apply to toe 0 Active Pepcid Complete 10-800-165 MG Oral Tablet Chewable (Famotidine-Ca Carb-Mag Hydrox) Take 1 Tablet by mouth daily. 0 Active Atorvastatin Calcium 10 MG Oral Tablet (Lipitor) Take 1 Tablet by mouth in the morning. 90 Tablet 1 05/28/2023 Active LORazepam 1 MG Oral Tablet (Ativan)Indications: ERNA (generalized anxiety disorder) Take 1 Tablet by mouth at bedtime as needed for Anxiety or Sleep. 30 Tablet 0 06/12/2023 Active Ondansetron 4 MG Oral Tablet Disintegrating (Zofran) Place 1 Tablet on tongue every 8 hours as needed for Nausea. dissolve on tongue. 30 Tablet 1 06/30/2023 Active Levothyroxine Sodium 50 MCG Oral Tablet (Levoxyl)Indications :Hypothyroidism, unspecified type Take 1 tablet by mouth in the morning. (at least 30 min prior to breakfast or other meds). 90 Tablet 1 07/15/2023 Active Vitamin D (Ergocalciferol) 1.25 MG (73202 UT) Oral Capsule (Drisdol) TAKE 1 CAPSULE BY MOUTH EVERY 4 WEEKS 1 Capsule 1 07/15/2023 Active Bacitracin Zinc 500 UNIT/GM External OintmentIndications: HSV-1 infection Apply topically to affected area 3 times a day. As directed 28 g 1 07/15/2023 Active Nirmatrelvir&Ritonav ir 300/100 20 x 150 MG & 10 x 100MG Oral Tablet Therapy Pack (Paxlovid (300/100))Indication s:COVID-19 Take 2 pink tablets of Nirmatrelvir and 1 white tablet of Ritonavir two times a day by mouth. 30 Tablet 0 07/17/2023 Active Hospital, Clinic, or Other Facility Administered Medication Ordered Dose Route Frequency Start Date End Date Status vitamin b-12 (Cyanocobalamin) inj 1,000 mcgIndications:B12 deficiency 1000 mcg IM [id number] 07/02/2023 06/02/2024 Active documented as of this encounter (statuses as of 07/17/2023) Active Problems Problem Noted Date Diagnosed Date Hypertensive heart disease w ith chronic diastolic congestive heart failure 02/26/2023 Diabetic peripheral neuropathy 01/06/2023 PAF (paroxysmal atrial fibrillation) 09/24/2021 RBBB (right bundle branch block) 09/24/2021 Type 2 diabetes mellitus wit h hemoglobin A1c goal of less than 7.0% 08/23/2021 Anxiety, generalized 08/23/2021 Hyperlipidemia 08/23/2021 Gastroesophageal reflux disease without esophagi tis 10/12/2020 Breast cyst, right 07/05/2020 Overview: Complex. Due for repeat US 12/2020 Prediabetes 04/24/2020 COPD, group B, by GOLD 2017 classification 01/23 Overview: Per COPD GOLD Classification Depression with anxiety 06/17/2019 Hypothyroidism 03/04/2019 Factor V Leiden 08/04/2017 Overview: Per Dr. Lorenzo 06/2017: The patient with a prior history of DVT with smoking and factor V Leiden, was off Coumadin on prophylactic aspirin. W/ + d dimer- developed a "provoke superficial clot in the cephalic vein and was place back on coumadin- which has continued due to essentially having a initial unprovoked DVT w/ cont smoking Last Assessment & Plan: Overview Signed 08/04/2017 12:30 PM by Shorty Barnes MD Per Dr. Lorenzo 06/2017: The patient with a prior history of DVT with smoking and factor V Leiden, was off Coumadin on prophylactic aspirin. W/ + d dimer- developed a "provoke superficial clot in the cephalic vein and was place back on coumadin- which has continued due to essentially having a initial unprovoked DVT w/ cont smoking Chronic diastolic CHF (congestive heart failure) 08/01/2017 B12 deficiency 12/12/2014 Iron deficiency anemia 10/19/2012 Venous thrombosis 09/24/2012 documented as of this encounter (statuses as of 07/17/2023) Resolved Problems Problem Noted Date Diagnosed Date Resolved Date Food insecurity 10/22/2021 06/26/2023 Overview: Per [facility] Protocol COPD with emphysema 09/20/2019 02/29/20 Overview: Per COPD GOLD ClassificationPatient has combo code in use. Tobacco use disorder 06/17/2019 023 Abnormal mammogram 06/17/2019 1 Emphysema lung 05/28/2018 12/31/2019 Overview: Patient has combo code in use. 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 08/01/19 18 12/31/2019 Overview: Historical- Resolved per 12/17/2019 Cardiology note Heart failure, acute, systol ic and diastolic, first episode 08/01/2017 08/05/2017 Right heart failure with red uced right ventricular function 08/01/2017 02/28/2022 Severe mitral regurgitation 08/01/2017 01/01/2018 HFrEF (heart failure with re duced ejection fraction) 08/01/2017 06/15/2019 Overview: Duplicate Atypical atrial flutter 08/01/201712/12 Overview: Resolved per 12/17/2019 Cardiology visit Bronchiectasis 10/19/2014 08/01/2017 GI bleed 10/19/2012 08/01/2017 documented as of this encounter (statuses as of 07/17/2023) Immunizations Name Administration Dates Next Due Seasonal Influenza Virus Vac cine, Unspecified Formulation 06/22/2020 Seasonal Influenza, PF, 6 M & above, IM , (FluLaval or Fluzone) 07/03/2023,04/29/2022,06/22/2020 documented as of this encounter Social History Tobacco Use Types Packs/Day Years Used Date Smoking Tobacco: Former Cigarettes 0.8 40 Q uit: 07/13/2022 Smokeless Tobacco: Never Alcohol Use Standard Drinks/Week Comments Not Currently 0 (1 standard drink = 0.6 oz pur e alcohol) Haven't drank in 12 years PHQ-2 Answer Date Recorded PHQ Adult Total Score 0 06/03/2023 Hunger Vital Sign Answer Date Recorded Within the past 12 months, y ou worried that your food would run out before you got the money to buy more. Never true 06/03/20 23 Within the past 12 months, t he food you bought just didn't last and you didn't have money to get more. Never true 06/03/2023 Sex and Gender Information Value Date Recorded Sex Assigned at Female 05/28/2022 8:17 PM EST Gender Identity Female 05/28/2022 8:17 PM EST Sexual Orientation Choose not to disclose 2021 8:17 PM EST Job Start Date Occupation Industry Not on file Not on file Not on file documented as of this encounter Functional Status Functional Status Response Date of Assess ment Are you deaf or do you have serious difficulty h earing? No 07/31/2017 Are you blind or do you have serious difficulty seeing, even when wearing glasses? No 07/31/2017 Do you have serious difficul ty walking or climbing stairs? (5 years old or older) No 07/31/2017 Do you have difficulty dress ing or bathing? (5 years old or older) No 07/31/2017 Because of a physical, menta l, or emotional condition, do you have difficulty doing errands alone such as visiting a doctor s office or shopping? (15 years old or older) No 07/31/19 18 Cognitive Status Response Date of Assessm ent Because of a physical, menta l, or emotional condition, do you have serious difficulty concentrating, remembering, or making decisions? (5 years old or older) No 07/31/2017 documented as of this encounter Progress Notes * Sudarshan North MD - 07/17/2023 10:45 AM EST Patient location: HOME. I was in a hospital or clinic location. After connecting through televideo,patient was verified with two unique identifiers. Patient (or authorized legal medical claims representative) was then informed that this was a Telemedicine visit and being conducted confidentially over secure lines. Methods to assure confidentiality were taken. Patient acknowledged consent and understanding of pr ivacy and security of the Telemedicine visit. The patient agreed to participate. Bernie has been sick with cold sx for 7 days. She tested negative for Covid on 07/11 but tested positive today. She mentions something about a sore tongue as well Health Maintenance addressed. Not vaxxed Never had covid before Patient Active Problem List Diagnosis Code Venous thrombosis I82.90 Iron deficiency anemia D50.9 B12 deficiency E53.8 Chronic diastolic CHF (congestive heart failure) (HCC) I50.32 Factor V Leiden ([facility]) D68.51 Hypothyroidism E03.9 Depression with anxiety F41.8 COPD, group B, by GOLD 2017 classification ([facility]) J44.9 Prediabetes R73.03 Breast cyst, right N60.01 Gastroesophageal reflux disease without esophagitis K21.9 Type 2 diabetes mellitus with hemoglobin A1c goal of less than 7.0% ([facility]) E11.9 Anxiety, generalized F41.1 Hyperlipidemia E78.5 PAF (paroxysmal atrial fibrillation) ([facility]) I48.0 RBBB (right bundle branch block) I45.10 Diabetic peripheral neuropathy ([facility]) E11.42 Hypertensive heart disease with chronic diastolic congestive heart failure ([facility]) I11.0, I50.32 Past Medical History: Diagnosis Date Acute embolism and thrombosis of other specified deep vein of unspecified lower extremity ([facility]) 05/28/2018 Acute Acute viral myocarditis 08/01/2017 Atypical atrial flutter ([facility]) 08/01/2017 Bronchiectasis ([facility]) 10/19/2014 Coronary artery disease (CAD) excluded 08/04/2017 Cardiac cath 08/04/2017: normal coronary arteries COVID-19 07/17/2023 paxlovid Depression 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 Lorenzo 06/2017: The patient with a prior history of DVT with smoking and factor V Leiden, was off Coumadin on prophylactic aspirin. W/ + d dimer- developed a "provoke superficial clot in the cephalic vein and was place back on coumadin- which has continued due to essentially having a initialunprovoked DVT w/ cont smoking Gastroesophageal reflux disease without esophagitis 10/12/2020 GERD (gastroesophageal reflux disease) 12/12/2014 More specific code recommended. GI bleed 10/19/2012 Heart failure, acute, systolic and diastolic, first episode ([facility]) 08/01/2017 Heart failure, systolic, due to idiopathic cardiomyopathy ([facility]) 08/01/2017 Heartburn HFrEF (heart failure with reduced ejection fraction) ([facility]) 08/01/2017 Hypothyroidism Right heart failure with reduced right ventricular function ([facility]) 08/01/2017 Severe mitral regurgitation 08/01/2017 Past Surgical History: Procedure Laterality Date ANESTHESIA FOR CAT OR MRI SCAN N/A 08/05/2017 ANESTHESIA FOR NON-INVASIVE IMAGING (MRI OR CT) performed by IN AND OUT SURGERY [facility] at OR [facility] DELIVERY 1977 COLONOSCOPY COLONOSCOPY, DIAGNOSTIC (RECTUM) 11/10/2012 COLONOSCOPY FLEXIBLE PROXIMAL DIAGNOSTIC performed by Rodriguez Graham DO at ENDOSCOPY [facility] COLONOSCOPY, DIAGNOSTIC (RECTUM) 03/02/2018 COLONOSCOPY FLEXIBLE PROXIMAL DIAGNOSTIC performed by Efren Gongora MD at ENDOSCOPY [facility] COLONOSCOPY, DIAGNOSTIC (RECTUM) 02/26/2022 multi polyps in ascending & transverse, severe diverticulosis in entire colon / biopsies benignadenomatous polyps / 5 year recall / COLONOSCOPY FLEXIBLE PROXIMAL DIAGNOSTIC performed by Efren Beltrán MD at ENDOSCOPY [facility] CORONARY ANGIOGRAPHY W/RIGHT+LEFT CATH Left 08/04/2017 CORONARY ANGIOGRAPHY W/RIGHT+LEFT CATH performed by Jacky Vargas DO at CARDIAC LABS [facility] EGD, FLEXIBLE, DIAGNOSTIC 11/10/2012 UPPER GI ENDOSCOPY DIAGNOSTIC performed by Rodriguez Graham DO at ENDOSCOPY [facility] EGD, FLEXIBLE, DIAGNOSTIC 03/02/2018 ESOPHAGOGASTRODUODENOSCOPY (EGD), FLEXIBLE, TRANSORAL, DIAGNOSTIC performed by Efren Gongora MD at ENDOSCOPY [facility] UPPER GI ENDOSCOPY Review of patient's allergies indicates: Allergen Reactions Clindamycin Hives Penicillins Hives Sulfa Antibiotics Hives Lab Results Component Value Date/Time HEMOGLOBIN A1C - [facility] 6.4 (H) 01/07/2023 10:38 AM HEMOGLOBIN A1C - [facility] 6.0 (H) 06/28/2022 11:48 AM HEMOGLOBIN A1C - [facility] 6.0 (H) 03/04/2022 11:39 AM HEMOGLOBIN A1C - [facility] 6.2 (H) 04/18/2020 10:44 AM HEMOGLOBIN A1C - [facility] 6.2 (H) 05/20/2019 12:31 PM HEMOGLOBIN A1C - [facility] 5.9 (H) 06/22/2018 11:16 AM A: COVID-19 (Primary) - Nirmatrelvir&Ritonavir 300/100 20 x 150 MG & 10 x 100MG Oral Tablet Therapy Pack (Paxlovid (300/100)); Take 2 pink tablets of Nirmatrelvir and 1 white tablet of Ritonavir two times a day bymouth. Hold the atorvastatin Quarantine 5 days, mask for 5 more. documented in this encounter Plan of Treatment Upcoming Encounters Date Type Department Care Team (Late st Contact Info) Description 07/24/2023 11:30 AM EST Imaging Radiology [address] [facility] [place] [address] 08/05/2023 10:00 AM EST Office Visit Sleep Disorders Ctr [facility] [address] [place] [phone] Janice Smiley CRNP [address] [place] [address] 08/06/2023 2:30 PM EST Anticoagulation Pharmacy, [facility] [address] [place] [address] Pharmacist1, [facility] [address] [place] [address] 08/13/2023 1:00 PM EST Imaging Radiology [address] [facility] [place] [address] 08/20/2023 10:00 AM EST Office Visit Family Practice [facility] [address] [place] [address] Elaine Pierce, DO [address] [place] [address] 08/20/2023 10:20 AM EST Laboratory Laboratory [facility] [place] [address] [place] [phone] Mary, Lab [facility] [address] [place] [address] 10/08/2023 9:00 AM EDT Office Visit Cardiology, [facility] [address] [facility] [place] [address] Anika Blanc, PACalvinC [address] [place] [address] 02/19/2024 1:00 PM EDT Office Visit Gynecology/Obstetrics [facility] Marcos [address] [place] [address] Ally Banuelos CRNP [address] [place] [address] Scheduled Procedures Name Priority Associated Diagnoses Date/Ti me COLONOSCOPY FLEXIBLE PROXIMAL DIAGNOSTIC Recall History of colon polyps COLONOSCOPY FLEXIBLE PROXIMAL DIAGNOSTIC Recall Colon polyps Health Maintenance Due Date Last Done Comments COVID-19 Vaccine (#1) 1959 Pneumococcal Vaccine: Pediatrics (0 to 5 Years) and At-Risk Patients (6 to 64 Years) (1 - PCV) 1965 Diabetic Foot Exam 1977 DTaP,Tdap,and Td Vaccines (1 - Tdap) 1978 Zoster Vaccines (1 of 2) 2009 Hepatitis B (1 of 3 - Risk 3-dose series) 2019 HbA1c 07/09/2023 01/07/2023, 06/13, 03/04/2022, Additional history exists Mammogram 08/08/2023 08/08/2022, 10/2021, 07/05/2020, Additional history exists TSH 10/23/2023 10/22/2022, 08/14, 03/04/2022, Additional history exists GFR 01/08/2024 01/07/2023, 10/12, 08/28/2022, Additional history exists Albumin/Creatinine Ratio 01/24/2024 023, 07/18/2021, 08/04/2018 Diabetic Eye Exam 03/03/2024 03/03/2023, 12/04/2021 Depression Screening 06/03/2024 06/03/2023 O2 ASSESSMENT COMPLETED IN PAST YEAR FOR COPD 07/03/2024 07/03/2023 COLONOSCOPY-EVERY 3 YRS AGES 18-100 02/26/2025 02/26/2022, 02/26/2022, 03/02/2018, Additional history exists Pap Smear 04/09/2026 04/09/2023, 07/0 07/2018, 11/15/2015, Additional history exists Cervical Cancer Screening 04/09/2028 HPV/Co-Test 04/09/2028 04/09/2023 Lipid Panel 05/13/2028 05/13/2023, 01/11, 03/04/2022, Additional history exists Hepatitis C Screening Completed 06/20/2015 Alpha-1 Antitrypsin Completed 09/05/2020 LUNG CANCER SCREENING - USE SMARTSET 30816 Completed 04/01/2022, 02/02/2021, 04/12/2019, Additional history exists Influenza Vaccine (FLU shot) Completed , 04/29/2022, 06/22/2020, Additional history exists GARDASIL-HPV IMMUNIZATION SERIES Aged Out No longer eligible based on patient's age to complete this topic MENINGOCOCCAL (MENACTRA/MENVEO) Aged Out No longer eligible based on patient's age to complete this topic documented as of this encounter Medical Devices Not on filedocumented as of this encounter Visit Diagnoses Diagnosis COVID-19- Primary documented in this encounter Advance Directives Latest Code Status on File Code Status Date Activated Date Inactivated Comments Full Code 07/31/2017 9:32 PM 08/05/2017 8:45 PM This order reflects the patients wishes and were consensually agreed upon. Question Answer Comments Discussion of Advance Directives occurred with: Patient Does the patient have a Living Will? No Does the patient have Health Care Power of Showroom Salesperson? No Care Teams Substation Operator Conversion Relationship Specialty Start Date End Date Elaine Pierce DO [address] [place] [address] PCP - General Family Medicine 08/23/21 documented as of this encounter
--- OUTSIDE RECORDS SUMMARY | 2023-07-21 18:11 | External Medical Summary | Summary of Care ---
Author Name Unknown Organization [facility] Address [address] [place] [address] Phone [phone] Care Team Providers Care Cad Draftsman Name Role Phone Elaine Pierce DO Primary Care Provider Reason for Referral * Precert (Within 10 days (routine)) - Authorized Specialty Diagnoses / Procedures Referred By Contac t Referred To Contact Radiology Diagnoses Hip pain, left Procedures CT LOWER EXTREMITY LEFT W WO CONTRAST Elaine Pierce DO [address] [place] [address] Referral ID Status Reason Start Date Expiration Date V isits Requested Visits Authorized [id number] Authorized Precert 07/04/2023 09/02/2023 999 999 Reason for Visit * Reason Comments Pain Encounter Details Date Type Department Care Team (Late st Contact Info) Description 07/03/2023 9:20 AM EST Office Visit Family Practice [facility] [address] [place] [address] Elaine Pierce DO [address] [place] [address] Need for prophylactic vaccination and inoculation against influenza*; Hip pain, left; Prediabetes; HSV-1 infection Allergies Active Allergy Reactions Criticality Noted Date Comments Clindamycin Hives 09/06/2019 Penicillins Hives 02/20/2012 Sulfa Antibiotics Hives 02/20/2012 documented as of this encounter (statuses as of 07/09/2023) Medications Medication Sig Dispensed Refills Start Date End Date Status Nebulizer/Tubing/Mo uthpiece Kit J44.9 1 Kit 0 01/18/2021 Active Vitamin C 500 MG Oral Tablet Chewable Take 1 Tablet by mouth in the morning. 30 Tablet 5 07/01/2022 Active Warfarin Sodium 5 MG Oral Tablet (Coumadin)Indicatio ns:Atypical atrial flutter (HCC) TAKE 1/2 TABLET BY MOUTH ON FRIDAY & FRIDAY, AND 1 TAB ALL OTHER DAYS OF THE WEEK 80 Tablet 3 09/25/2022 Active Fluticasone Propionate 50 MCG/ACT Nasal SuspensionIndicatio ns:Rhinitis, unspecified type Administer 2 Sprays into each [...] 11/05/2022 Active Sucralfate 1 GM Oral Tablet (Carafate)Indicatio ns:Hiatal hernia,Heartburn,Na usea Take 1 Tablet by mouth in the [...] Active tiZANidine HCl 2 MG Oral Tablet (Zanaflex)Indicatio ns:Chronic bilateral low back pain with left-sided sciatica Take 1 Tablet by mouth every 6 hours as needed for Muscle spasms. 30 Tablet 0 01/09/2023 Active Betamethasone Dipropionate 0.05 % External OintmentIndications :Dyshidrotic eczema Apply to hands daily at bed time as needed 45 g 0 01/08/2023 Active metFORMIN HCl ER 500 MG Oral Tablet Extended Release 24 Hour (Glucophage XR)Indications:Pred iabetes Take 1 Tablet by mouth in the morning. 90 Tablet 1 01/22/2023 Active Pantoprazole Sodium 40 MG Oral Tablet Delayed Release (Protonix)Indicatio ns:Other iron deficiency anemia,Gastroesopha geal reflux disease TAKE 1 TABLET BY MOUTH ONCE DAILY IN THE MORNING 90 Tablet 3 01/22/2023 Active Levothyroxine Sodium 50 MCG Oral Tablet (Levoxyl)Indication s:Hypothyroidism, unspecified type Take 1 tablet by mouth in the morning. (at least 30 min prior to breakfast or other meds). 90 Tablet 1 01/20/2023 Active Cetirizine HCl 10 MG Oral Tablet (ZyrTEC) TAKE 1 TABLET BY MOUTH ONCE DAILY IN THE MORNING 90 Tablet 3 02/17/2023 Active Albuterol Sulfate HFA 108 (90 Base) MCG/ACT Inhalation Aerosol SolutionIndications :Pulmonary emphysema, unspecified emphysema type (HCC) Inhale 2 Puffs by mouth every 6 hours as needed for Shortness of Breath or Wheezing. 54 g 3 03/21/2023 Active Metoprolol Succinate ER 50 MG Oral Tablet Extended Release 24 Hour (toPROL XL)Indications:Fati aleena, unspecified type,Palpitations,D ilated cardiomyopathy (HCC),Chronic diastolic CHF (congestive heart failure) (HCC),RBBB (right bundle branch block),Factor V Leiden (HCC),SVT (supraventricular tachycardia) Take 1 Tablet by mouth in the morning and 1 Tablet before bedtime. 180 Tablet 3 03/31/2023 Active Vitamin D (Ergocalciferol) 1.25 MG (59427 UT) Oral Capsule (Drisdol) TAKE 1 CAPSULE BY MOUTH EVERY 4 WEEKS 1 Capsule 1 05/12/2023 Active Gabapentin 600 MG Oral Tablet (Neurontin)Indicati ons:Numbness and tingling of both feet,Dysesthesia TAKE 1 TABLET BY MOUTH 3 TIMES DAILY 180 Tablet 3 05/20/2023 Active Furosemide 40 MG Oral Tablet (Lasix)Indications: Heart failure, systolic, due to idiopathic cardiomyopathy (HCC) Take 1 Tablet by mouth in the [...] 05/28/2023 Active LORazepam 1 MG Oral Tablet (Ativan)Indications :ERNA (generalized anxiety disorder) Take 1 Tablet by mouth at bedtime as needed for Anxiety or Sleep. 30 Tablet 0 06/12/2023 Active Ondansetron 4 MG Oral Tablet Disintegrating (Zofran) Place 1 Tablet on tongue every 8 hours as needed for Nausea. dissolve on tongue. 30 Tablet 1 06/30/2023 Active valACYclovir HCl 1 GM Oral Tablet (Valtrex)Indication s:HSV-1 infection Take 1 Tablet by mouth in the morning and 1 Tablet at noon and 1 Tablet before bedtime. Do all this for 7 days. 21 Tablet 0 07/03/2023 3 Active Bacitracin 500 UNIT/GM External OintmentIndications :HSV-1 infection Apply topically to affected area 3 times a day. 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 Rinse mouth out after use.. 12 g 5 01/13/2023 3 Discontinue d(Patient preference/ discontinua tion) Empagliflozin 10 MG Oral Tablet (Jardiance)Indicati ons:Hypertensive heart disease with chronic diastolic congestive heart failure (HCC),Type 2 diabetes mellitus with hemoglobin A1c goal of less than 7.0% (HCC) Take 1 Tablet by mouth in the morning. 30 Tablet 11 02/26/2023 3 Discontinue d(Patient preference/ discontinua tion) Hospital, Clinic, or Other Facility Administered Medication Ordered Dose Route Frequency Start Date End Date Status vitamin b-12 (Cyanocobalamin) inj 1,000 mcgIndications:B12 deficiency 1000 mcg IM [id number] 07/02/2023 06/02/2024 Active documented as of this encounter (statuses as of 07/09/2023) Active Problems Problem Noted Date Diagnosed Date [...] as of this encounter (statuses as of 07/09/2023) Resolved Problems Problem Noted Date Diagnosed Date [...] as of this encounter (statuses as of 07/09/2023) Immunizations Name Administration Dates Next Due Seasonal [...] on file documented as of this encounter Last Filed Vital Signs Vital Sign Reading Time Taken Comments Blood Pressure 104/66 07/03/2023 9:10 AM EST Pulse 68 07/03/2023 9:10 AM EST Temperature 36.7 C (98.1 F) 07/03/2023 9:10 AM ES T Respiratory Rate 18 07/03/2023 9:10 AM EST Oxygen Saturation 98% 07/03/2023 9:10 AM EST Inhaled Oxygen Concentration - - Weight 104.3 kg (230 lb) 07/03/2023 9:10 AM EST Height - - Body Mass Index 34.97 04/09/2023 1:50 PM EDT documented in this encounter Functional Status Functional Status Response [...] (15 years old or older) No 07/31/19 Cognitive Status Response Date of Assessm ent Because of a physical, menta l, or emotional condition, do you have serious difficulty concentrating, remembering, or making decisions? (5 years old or older) No 07/31/2017 documented as of this encounter Progress Notes * Elaine Pierce, - 07/03/2023 9:38 AM EST Subjective: Bernie Mohan is a 63 year old female. Chief Complaint Patient presents with Pain HPI: Bernie Mohan presents with complaints of left lateral hip and tailbone pain/discomfort Worse with standing, persistent for months, no h/o fall. No rash. Ulcers inside nose- persistent, scab and recur. No drainage No fevers, chills, nausea, vomiting, diarrhea, constipation, abdominal pain, or lethargy. PHM: Patient Active Problem List Diagnosis Code Venous thrombosis I82.90 Iron deficiency anemia D50.9 B12 deficiency E53.8 Chronic diastolic CHF (congestive heart failure) ([facility]) I50.32 Factor V Leiden ([facility]) D68.51 Hypothyroidism E03.9 Depression with anxiety F41.8 COPD, group B, by GOLD 2017 classification ([facility]) J44.9 Prediabetes R73.03 Breast cyst, right N60.01 Gastroesophageal reflux disease without esophagitis K21.9 Type 2 diabetes mellitus with hemoglobin A1c goal of less than 7.0% ([facility]) E11.9 Anxiety, generalized F41.1 Hyperlipidemia E78.5 PAF (paroxysmal atrial fibrillation) ([facility]) I48.0 RBBB (right bundle branch block) I45.10 Diabetic peripheral neuropathy ([facility]) E11.42 Hypertensive heart disease with chronic diastolic congestive heart failure ([facility]) I11.0, I50.32 Outpatient Medications Prior to Visit Medication Sig Dispense Refill Ondansetron 4 MG Oral Tablet Disintegrating (Zofran) Place 1 Tablet on tongue every 8 hours as needed for Nausea. dissolve on tongue. 30 Tablet 1 LORazepam 1 MG Oral Tablet (Ativan) Take 1 Tablet by mouth at bedtime as needed for Anxiety or Sleep. 30 Tablet 0 Ammonium Lactate 12 % External Lotion (Lac-Hydrin) Apply topically to affected area as needed for Dry Skin. Apply topically to affected area 2 times a day Atorvastatin Calcium 10 MG Oral Tablet (Lipitor) Take 1 Tablet by mouth in the morning. 90 Tablet 1 Benzoyl Peroxide Wash 10 % External Liquid (Benzoyl Peroxide) Apply topically to affected area daily. Apply topically to affected area daily. Apply to groin in shower, leave on for five minutes and wash off Ketoconazole 2 % External Shampoo (Nizoral) Apply topically to affected area every 3 days. Apply toscalp, scrub in and leave on for 5 minutes then wash off Mupirocin 2 % External Ointment (Bactroban) Apply topically to affected area 3 times a day . Apply to toe Pepcid Complete 10-800-165 MG Oral Tablet Chewable (Famotidine-Ca Carb-Mag Hydrox) Take 1 Tablet bymouth daily. Thiamine HCl 100 MG Oral Tablet (vitamin B-1) Take 1 Tablet by mouth in the morning. Gabapentin 600 MG Oral Tablet (Neurontin) TAKE 1 TABLET BY MOUTH 3 TIMES DAILY 180 Tablet 3 Furosemide 40 MG Oral Tablet (Lasix) Take 1 Tablet by mouth in the morning. Take an additional tablet as needed for weight gain of 2-3 lbs overnight, increased edema.. 130 Tablet 3 Vitamin D (Ergocalciferol) 1.25 MG (38046 UT) Oral Capsule (Drisdol) TAKE 1 CAPSULE BY MOUTH EVERY 4 WEEKS 1 Capsule 1 Metoprolol Succinate ER 50 MG Oral Tablet Extended Release 24 Hour (toPROL XL) Take 1 Tablet by mouth in the morning and 1 Tablet before bedtime. 180 Tablet 3 Albuterol Sulfate HFA 108 (90 Base) MCG/ACT Inhalation Aerosol Solution Inhale 2 Puffs by mouth every 6 hours as needed for Shortness of Breath or Wheezing. 54 g 3 [DISCONTINUED] Empagliflozin 10 MG Oral Tablet (Jardiance) Take 1 Tablet by mouth in the morning. 30 Tablet 11 Cetirizine HCl 10 MG Oral Tablet (ZyrTEC) TAKE 1 TABLET BY MOUTH ONCE DAILY IN THE MORNING 90 Tablet 3 metFORMIN HCl ER 500 MG Oral Tablet Extended Release 24 Hour (Glucophage XR) Take 1 Tablet by mouthin the morning. 90 Tablet 1 Pantoprazole Sodium 40 MG Oral Tablet Delayed Release (Protonix) TAKE 1 TABLET BY MOUTH ONCE DAILY IN THE MORNING 90 Tablet 3 Levothyroxine Sodium 50 MCG Oral Tablet (Levoxyl) Take 1 tablet by mouth in the morning. (at least 30 min prior to breakfast or other meds). 90 Tablet 1 [DISCONTINUED] Fluticasone-Salmeterol 115-21 MCG/ACT Inhalation Aerosol (Advair Hfa) Inhale 2 Puffsby mouth in the morning and 2 Puffs before bedtime. Rinse mouth out after use.. (Patient taking differently: Inhale 2 Puffs by mouth in the morning and 2 Puffs before bedtime. Taking as needed, states PCP aware.) 12 g 5 tiZANidine HCl 2 MG Oral Tablet (Zanaflex) Take 1 Tablet by mouth every 6 hours as needed for Muscle spasms. 30 Tablet 0 Betamethasone Dipropionate 0.05 % External Ointment Apply to hands daily at bed time as needed 45 g0 oxygen IN GAS 2 LPM via NC during hours of sleep 1 Each 0 Sucralfate 1 GM Oral Tablet (Carafate) Take 1 Tablet by mouth in the morning and 1 Tablet at noon and 1 Tablet before bedtime. 270 Tablet 1 Lisinopril 2.5 MG Oral Tablet (Prinivil) Take 1 Tablet by mouth in the morning. 90 Tablet 3 Albuterol Sulfate (2.5 MG/3ML) 0.083% Inhalation Nebulization Solution (Proventil) Inhale 1 Vial via nebulizer every 4 hours as needed for Wheezing. , use in place of rescue inhaler. 360 mL 5 Fluticasone Propionate 50 MCG/ACT Nasal Suspension Administer 2 Sprays into each nostril in the morning and 2 Sprays in the evening. May reduce down to daily once congestion improved.. 9.9 mL 3 Warfarin Sodium 5 MG Oral Tablet (Coumadin) TAKE 1/2 TABLET BY MOUTH ON FRIDAY & FRIDAY, AND 1 TAB ALL OTHER DAYS OF THE WEEK 80 Tablet 3 Vitamin C 500 MG Oral Tablet Chewable Take 1 Tablet by mouth in the morning. 30 Tablet 5 Nebulizer/Tubing/Mouthpiece Kit J44.9 1 Kit 0 Facility-Administered Medications Prior to Visit Medication Dose Route Frequency Provider Last Rate Last Admin vitamin b-12 (Cyanocobalamin) inj 1,000 mcg 1,000 mcg Intramuscular Q4 Weeks Elaine Pierce DO 1,000 mcg at 07/03/23 0918 Last reviewed on 07/03/2023 9:10 AM by Candelaria Whyte LPN Review of patient's allergies indicates: Allergen Reactions Clindamycin Hives Penicillins Hives Sulfa Antibiotics Hives Objective: BP 104/66 | Pulse 68 | Temp 36.7 C (98.1 F) (Tympanic) | Resp 18 | Wt 104.3 kg (230 lb) | LMP (LMP Unknown) | SpO2 98% | BMI 34.97 kg/m | BSA 2.24 m Physical Exam: General: alert, healthy, and no distress Head: Normocephalic, No masses, lesions, tenderness or abnormalities Nose: no mucosal erythema, no mucosal edema, no purulent discharge- ulcer not seen Oropharynx: no exudate, no erythema, lips, buccal mucosa, and tongue normal, and mucous membranes are moist Neck: supple, no adenopathy, no bruits, thyroid normal size, non-tender, without nodularity Heart: regular rate & rhythm, no murmur, and no gallops Lungs: chest symmetric with normal AP diameter, no chest deformities noted, no chest wall tenderness, lungs clear to auscultation Pulses: carotid=2/4 w/o bruits Extremities: less than 2 second capillary refill, no joint deformities, effusion, or inflammation ASSESSMENT/PLAN: Need for prophylactic vaccination and inoculation against influenza (Primary) - INFLUENZA VACC, QUAD, PF, 6 MONTHS & UP, 0.5 ML, IM Hip pain, left - CT LOWER EXTREMITY LEFT W WO CONTRAST; Future; Expected date: 07/04/2023 - BUN; Future; Expected date: 07/03/2023 - CREATININE; Future; Expected date: 07/03/2023 Tylenol prn, consider ortho referral, possible cortisone injection Prediabetes - HEMOGLOBIN A1C; Future; Expected date: 07/03/2023 Fasting sugar was a little high suggesting prediabetes or insulin resistance. This means you may develop diabetes in the next few years. You should do everything you can to prevent diabetes now including cutting out sugars, especially sugar sweetened beverages, watching carbs, switching to whole grains and eating 3-4 small servings daily. Exercising 30-60 minutes daily can help the insulin resistance a lot, and10% weight loss, if applicable can also help. HSV-1 infection - valACYclovir HCl 1 GM Oral Tablet (Valtrex); Take 1 Tablet by mouth in the morning and 1 Tablet at noon and 1 Tablet before bedtime. Do all this for 7 days. - Bacitracin 500 UNIT/GM External Ointment; Apply topically to affected area 3 times a day. As directed Ddx: nasolabial HSV vs impetigo Check-out note: CT 30 min spent with patient, reviewing history, performing physical exam, reviewing labs, studies, specialist OVNs, and reports, educating and coordinating care, discussing treatment Elaine Pierce DO * Candelaria Whyte LPN - 07/03/2023 9:12 AM EST PRE - ADMINISTRATION DOCUMENTATION Are you experiencing any cold symptoms or fever? No Have you had Guillain-[place] Syndrome (an illness that causes paralysis) within the last 6 weeks? No Have you had the flu shot in the past? YES Have you ever had a reaction to the flu shot? No Candelaria Whyte LPN, 07/03/2023 9:12 AM Immunization Administration Documentation Time Out Procedure Performed: Yes Patient Identified (Ask Name/Date of ): Yes Does the patient have a fever greater than 101 degrees today? No Patient allergic to latex? No VFC Stock: No Immunization(s) verified: Yes, Immunization Name: Flu, VIS Sheet(s) given: Yes Verified Side and Site: Yes Verified Shot(s) with Parent(s)/Patient: Yes documented in this encounter Nursing Notes * Candelaria Whyte LPN - 07/03/2023 9:11 AM EST Bernie Mohan presents with complaints of left hip and tailbone pain/discomfort documented in this encounter Plan of Treatment Upcoming Encounters Date Type Department Care Team (Late st Contact Info) Description 07/24/2023 11:30 AM EST [facility] [address] [facility] [address] 08/05/2023 10:00 AM EST Office Visit Sleep Disorders Ctr [facility] [address] [facility] [place] [phone] Janice Smiley CRNP 132 [facility] [place] [address] 08/06/2023 2:30 PM EST Anticoagulation Pharmacy, [facility] [address] [place] [address] Pharmacist1, [facility] [address] [place] [address] 08/13/2023 1:00 PM EST Imaging Radiology [address] 132 [facility] [place] [address] 08/20/2023 10:00 AM EST Office Visit Family Practice [facility] [place] [address] [place] [address] Elaine Pierce, [address] [place] [address] [address] 08/20/2023 10:20 AM EST Laboratory Laboratory [facility] [place] [address] [id number] Mary, [address] [place] [address] [address] 10/08/2023 9:00 AM EDT Office Visit Cardiology, [facility] [address] [place] [address] Anika Blanc, MIKE [address] [place] [address] 02/19/2024 1:00 PM EDT Office Visit Gynecology/Obstetrics [facility] [address] [place] [address] Ally Banuelos CRNP [address] [facility] [place] [address] Scheduled Orders Name Type Priority Associated Diagnoses Orde r Schedule CT LOWER EXTREMITY LEFT W WO CONTRAST Medical Imaging Routine Hip pain, left Expected: 07/04/2023, Expires: 08/03/2024 BUN Lab Routine Hip pain, left Expected: 07/03/2023 (Approximate), Expires: 07/02/2024 CREATININE Lab Routine Hip pain, left Expected: 07/03/2023 (Approximate), Expires: 07/02/2024 HEMOGLOBIN A1C Lab Routine Prediabetes Expected: 07/03/2023 (Approximate), Expires: 07/02/2024 Scheduled Procedures Name Priority Associated Diagnoses Date/Ti [...] 03/04/2022, Additional history exists Mammogram 08/08/2023 08/08/2022, 0 10/2021, 07/05/2020, Additional history exists TSH 10/23/2023 10/22/2022, 08/14, 03/04/2022, Additional history exists GFR 01/08/2024 01/07/2023, 10/12, 08/28/2022, Additional history exists Albumin/Creatinine Ratio 01/24/2024 023, 07/18/2021, 08/04/2018 Diabetic Eye Exam 03/03/2024 03/03/2023, 12/04/2021 Depression Screening 06/03/2024 06/03/2023 O2 ASSESSMENT COMPLETED IN PAST YEAR FOR COPD 07/03/2024 07/03/2023 COLONOSCOPY-EVERY 3 YRS AGES 18-100 02/26/2025 02/26/2022, 02/26/2022, 03/02/2018, Additional history exists Pap Smear 04/09/2026 04/09/2023, 07/2018, 11/15/2015, Additional history exists Cervical Cancer Screening 04/09/2028 HPV/Co-Test 04/09/2028 04/09/2023 Lipid Panel 05/13/2028 05/13/2023, 01/11, 03/04/2022, Additional history exists Hepatitis C Screening Completed 06/20/2015 Alpha-1 Antitrypsin Completed 09/05/2020 LUNG CANCER SCREENING - USE SMARTSET 17344 Completed 04/01/2022, 02/02/2021, 04/12/2019, Additional history exists [...] as of this encounter Visit Diagnoses Diagnosis Need for prophylactic vaccination and inoculation against influenza- Primary Hip pain, left Pain in joint, pelvic region and thigh Prediabetes Other abnormal glucose HSV-1 infection Herpes simplex without mention of complication documented in this encounter Administered Medications Active Administered Medications - up to 3 most recent administrations Medication Order MAR Action Action Date Dose Rate Site vitamin b-12 (Cyanocobalamin) inj 1,000 mcg 1,000 mcg, Intramuscular, [id number], First dose on Fri07/02/23 at 1130, Last dose on Fri05/05/24 at 1130, For 12 doses Given 07/03/2023 9:18 AM EST 1,000 mcg Deltoid Right Lower documented in this encounter Advance Directives Latest Code Status on File Code Status Date Activated Date Inactivated Comments Full Code 07/31/2017 9:32 PM 08/05/2017 8:45 PM This order reflects the patients wishes and were consensually agreed upon. Question Answer Comments Discussion of Advance Directives occurred with: Patient Does the patient have a Living Will? No Does the patient have Health Care Power of Production Broacher? No Care Teams Cad Draftsman Relationship Specialty Start Date End Date Elaine Pierce DO [address] [place] [address] PCP - General Family Medicine 08/23/21 documented as of this encounter
--- OUTSIDE RECORDS SUMMARY | 2023-07-21 18:11 | External Medical Summary | Summary of Care ---
Author Name Unknown Organization [facility] Address [address] [place] [address] Phone [phone] Care Team Providers Care Foreclosure Clerk Name Role Phone Elaine Pierce DO Primary Care Provider Reason for Visit * Reason Comments eRx-Medication Refill Encounter Details Date Type Department Care Team (Late st Contact Info) Description 07/15/2023 Refill Pharmacy, [facility] [address] [place] [address] Elaine Pierce DO [address] [facility] [place] [address] Hypothyroidism, unspecified type; HSV-1 infection Allergies Active Allergy Reactions Criticality Noted Date Comments Clindamycin Hives 09/06/2019 Penicillins Hives 02/20/2012 Sulfa Antibiotics Hives 02/20/2012 documented as of this encounter (statuses as of 07/15/2023) Medications Medication Sig Dispensed Refills Start Date End Date Status Nebulizer/Tubing/Mo uthpiece Kit J44.9 1 Kit 0 1 Active Vitamin C 500 MG Oral Tablet Chewable Take 1 Tablet by mouth in the morning. 30 Tablet 5 2 Active Warfarin Sodium 5 MG Oral Tablet (Coumadin)Indicatio ns:Atypical atrial flutter (HCC) TAKE 1/2 TABLET BY MOUTH ON FRIDAY & FRIDAY, AND 1 TAB ALL OTHER DAYS OF THE WEEK 80 Tablet 3 3 Active Fluticasone Propionate 50 MCG/ACT Nasal SuspensionIndicatio ns:Rhinitis, unspecified type Administer 2 Sprays into each nostril in the morning and 2 Sprays in the evening. May reduce down to daily once congestion improved.. 9.9 mL 3 3 Active Albuterol Sulfate (2.5 MG/3ML) 0.083% Inhalation Nebulization Solution (Proventil) Inhale 1 Vial via nebulizer every 4 hours as needed for Wheezing. , use in place of rescue inhaler. 360 mL 5 3 Active Sucralfate 1 GM Oral Tablet (Carafate)Indicatio ns:Hiatal hernia,Heartburn,Na usea Take 1 Tablet by mouth in the morning and 1 Tablet at noon and 1 Tablet before bedtime. 270 Tablet 1 3 Active Lisinopril 2.5 MG Oral Tablet (Prinivil) Take 1 Tablet by mouth in the morning. 90 Tablet 3 3 Active oxygen IN GAS 2 LPM via NC during hours of sleep 1 Each 0 3 Active tiZANidine HCl 2 MG Oral Tablet (Zanaflex)Indicatio ns:Chronic bilateral low back pain with left-sided sciatica Take 1 Tablet by mouth every 6 hours as needed for Muscle spasms. 30 Tablet 0 3 Active Betamethasone Dipropionate 0.05 % External OintmentIndications :Dyshidrotic eczema Apply to hands daily at bed time as needed 45 g 0 3 Active metFORMIN HCl ER 500 MG Oral Tablet Extended Release 24 Hour (Glucophage XR)Indications:Pred iabetes Take 1 Tablet by mouth in the morning. 90 Tablet 1 3 Active Pantoprazole Sodium 40 MG Oral Tablet Delayed Release (Protonix)Indicatio ns:Other iron deficiency anemia,Gastroesopha geal reflux disease TAKE 1 TABLET BY MOUTH ONCE DAILY IN THE MORNING 90 Tablet 3 3 Active Cetirizine HCl 10 MG Oral Tablet (ZyrTEC) TAKE 1 TABLET BY MOUTH ONCE DAILY IN THE MORNING 90 Tablet 3 3 Active Albuterol Sulfate HFA 108 (90 Base) MCG/ACT Inhalation Aerosol SolutionIndications :Pulmonary emphysema, unspecified emphysema type (HCC) Inhale 2 Puffs by mouth every 6 hours as needed for Shortness of Breath or Wheezing. 54 g 3 3 Active Metoprolol Succinate ER 50 MG Oral Tablet Extended Release 24 Hour (toPROL XL)Indications:Fati aleena, unspecified type,Palpitations,D ilated cardiomyopathy (HCC),Chronic diastolic CHF (congestive heart failure) ([facility]),RBBB (right bundle branch block),Factor V Leiden ([facility]),SVT (supraventricular tachycardia) Take 1 Tablet by mouth in the morning and 1 Tablet before bedtime. 180 Tablet 3 3 Active Gabapentin 600 MG Oral Tablet (Neurontin)Indicati ons:Numbness and tingling of both feet,Dysesthesia TAKE 1 TABLET BY MOUTH 3 TIMES DAILY 180 Tablet 3 3 Active Furosemide 40 MG Oral Tablet (Lasix)Indications: Heart failure, systolic, due to idiopathic cardiomyopathy ([facility]) Take 1 Tablet by mouth in the morning. Take an additional tablet as needed for weight gain of 2-3 lbs overnight, increased edema.. 130 Tablet 3 3 Active Thiamine HCl 100 MG Oral Tablet [...] mouth in the morning. 90 Tablet 1 3 Active LORazepam 1 MG Oral Tablet (Ativan)Indications :ERNA (generalized anxiety disorder) Take 1 Tablet by mouth at bedtime as needed for Anxiety or Sleep. 30 Tablet 0 3 Active Ondansetron 4 MG Oral Tablet Disintegrating (Zofran) Place 1 Tablet on tongue every 8 hours as needed for Nausea. dissolve on tongue. 30 Tablet 1 3 Active Levothyroxine Sodium 50 MCG Oral Tablet (Levoxyl)Indication s:Hypothyroidism, unspecified type Take 1 tablet by mouth in the morning. (at least 30 min prior to breakfast or other meds). 90 Tablet 1 4 Active Vitamin D (Ergocalciferol) 1.25 MG (08527 UT) Oral Capsule (Drisdol) TAKE 1 CAPSULE BY MOUTH EVERY 4 WEEKS 1 Capsule 1 4 Active Bacitracin Zinc 500 UNIT/GM External OintmentIndications :HSV-1 infection Apply topically to affected area 3 times a day. As directed 28 g 1 4 Active Levothyroxine Sodium 50 MCG Oral Tablet (Levoxyl)Indication s:Hypothyroidism, unspecified type Take 1 tablet by mouth in the morning. (at least 30 min prior to breakfast or other meds). 90 Tablet 1 3 07/15/19 24 Discontinued Vitamin D (Ergocalciferol) 1.25 MG (06472 UT) Oral Capsule (Drisdol) TAKE 1 CAPSULE BY MOUTH EVERY 4 WEEKS 1 Capsule 1 3 07/15/19 24 Discontinued Bacitracin 500 UNIT/GM External OintmentIndications :HSV-1 infection Apply topically to affected area 3 times a day. As directed 30 g 1 3 07/15/19 24 Discontinued Hospital, Clinic, or Other Facility Administered Medication Ordered Dose Route Frequency Start Date End Date Status vitamin b-12 (Cyanocobalamin) inj 1,000 mcgIndications:B12 deficiency 1000 mcg IM [id number] 07/02/2023 06/02/2024 Active documented as of this encounter (statuses as of 07/15/2023) Active Problems Problem Noted Date Diagnosed Date [...] as of this encounter (statuses as of 07/15/2023) Resolved Problems Problem Noted Date Diagnosed Date [...] as of this encounter (statuses as of 07/15/2023) Immunizations Name Administration Dates Next Due Seasonal [...] No 07/31/2017 documented as of this encounter Miscellaneous Notes * Telephone Encounter - Elaine Pierce DO - 07/15/2023 12:11 PM EST Signed Prescriptions: Disp Refills Levothyroxine Sodium 50 MCG Oral Tablet (L*90 Tab*1 Sig: Take 1 tablet by mouth in the morning. (at least 30 min prior to breakfast or other meds). Authorizing Provider: ELAINE PIERCE Vitamin D (Ergocalciferol) 1.25 MG (65251 *1 Caps*1 Sig: TAKE 1 CAPSULE BY MOUTH EVERY 4 WEEKS Authorizing Provider: ELAINE PIERCE Bacitracin Zinc 500 UNIT/GM External Ointm*28 g 1 Sig: Apply topically to affected area 3 times a day. As directed Authorizing Provider: ELAINE PIERCE * Telephone Encounter - Frankie Avina [facility] - 07/15/2023 10:32 AM ESTPending Prescriptions: Disp Refills Levothyroxine Sodium 50 MCG Oral Tablet [P*90 Tab*1 Sig: Take 1tablet by mouth in the morning. (at least 30 min prior to breakfast or other meds). Vitamin D (Ergocalciferol) 1.25 MG (69491 *1 Caps*1 Sig: TAKE 1 CAPSULE BY MOUTH EVERY 4 WEEKS Bacitracin Zinc 500 UNIT/GM External Ointm*28 g 1 Sig: Apply topically to affected area 3 times a day. As directed documented in this encounter Plan of Treatment Upcoming Encounters Date Type Department Care Team (Late st Contact Info) Description 07/24/2023 11:30 AM EST Imaging Radiology [facility] 1st [facility] [address] [address] 08/05/2023 10:00 AM EST Office Visit Sleep Disorders Ctr [facility] [address] [phone] Janice Smiley CRNP 132 [facility] [place] [address] 08/06/2023 2:30 PM EST Anticoagulation Pharmacy, [facility] [address] [place] [address] Pharmacist1, [facility] [address] [place] [address] 08/13/2023 1:00 PM EST Imaging Radiology [facility] 1st [facility] [address] [place] [address] 08/20/2023 10:00 AM EST Office Visit Family Practice [facility] [address] [place] [address] Elaine Pierce, DO [address] [facility] [place] [address] 08/20/2023 10:20 AM EST Laboratory Laboratory [facility] [address] [place] [phone] Park, Lab [facility] 200 [facility] [place] [address] 10/08/2023 9:00 AM EDT Office Visit Cardiology, [facility] [address] [place] [address] Anika Blanc PA-C [address] [address] [address] 02/19/2024 1:00 PM EDT Office Visit Gynecology/Obstetrics [facility] [address] [address] Ally Banuelos CRNP [address] [address] [address] Scheduled Procedures Name Priority Associated Diagnoses Date/Ti [...] 09/05/2020 LUNG CANCER SCREENING - USE SMARTSET 92132 Completed 04/01/2022, 02/02/2021, 04/12/2019, Additional history exists [...] as of this encounter Visit Diagnoses Diagnosis Hypothyroidism, unspecified type HSV-1 infection Herpes simplex without mention of complication documented in this encounter Advance Directives Latest Code Status on File Code Status Date Activated Date Inactivated Comments Full Code 07/31/2017 9:32 PM 08/05/2017 8:45 PM This order reflects the patients wishes and were consensually agreed upon. Question Answer Comments Discussion of Advance Directives occurred with: Patient Does the patient have a Living Will? No Does the patient have Health Care Power of Cheese Processor? No Care Teams Foreclosure Clerk Relationship Specialty Start Date End Date Elaine Pierce DO [address] [place] [address] PCP - General Family Medicine 08/23/21 documented as of this encounter
--- OUTSIDE RECORDS SUMMARY | 2023-07-21 18:11 | External Medical Summary | Summary of Care ---
Author Name Unknown Organization [facility] Address [address] [place] [address] Phone [phone] Care Team Providers Care Clinical Trial Associate Name Role Phone Elaine Pierce DO Primary Care Provider Reason for Visit * Reason Onset Date Comments Order Request 07/01/2023 Encounter Details Date Type Department Care Team (Late st Contact Info) Description 07/01/2023 Telephone Family Practice [facility] [place] 200 [facility] [place] [address] Elaine Pierce DO 200 [facility] [address] Order Request Allergies Active Allergy Reactions Criticality Noted Date Comments Clindamycin Hives 09/06/2019 Penicillins Hives 02/20/2012 Sulfa Antibiotics Hives 02/20/2012 documented as of this encounter (statuses as of 07/03/2023) Medications Medication Sig Dispensed Refills Start Date [...] Aerosol SolutionIndications :Pulmonary emphysema, unspecified emphysema type ([facility]) Inhale 2 Puffs by mouth every 6 hours as needed for Shortness of Breath or Wheezing. 54 g 3 03/21/2023 Active Metoprolol Succinate ER 50 MG Oral Tablet Extended Release 24 Hour (toPROL XL)Indications:Fati aleena, unspecified type,Palpitations,D ilated cardiomyopathy ([facility]),Chronic diastolic CHF (congestive heart failure) ([facility]),RBBB (right bundle branch block),Factor V Leiden ([facility]),SVT (supraventricular tachycardia) Take 1 Tablet by mouth in the morning and 1 Tablet before bedtime. 180 Tablet 3 03/31/2023 Active Vitamin D (Ergocalciferol) 1.25 MG (58769 UT) Oral Capsule (Drisdol) TAKE 1 CAPSULE BY MOUTH EVERY 4 WEEKS 1 Capsule 1 05/12/2023 Active Gabapentin 600 MG Oral Tablet (Neurontin)Indicati ons:Numbness and tingling of both feet,Dysesthesia TAKE 1 TABLET BY MOUTH 3 TIMES DAILY 180 Tablet 3 05/20/2023 Active Furosemide 40 MG Oral Tablet (Lasix)Indications: Heart failure, systolic, due to idiopathic cardiomyopathy ([facility]) Take 1 Tablet by mouth in the [...] on tongue. 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 D, group B, by GOLD 2017 classification ([facility]) Inhale 2 Puffs by mouth in the [...] inj 1,000 mcgIndications:B12 deficiency 1000 mcg IM [id number] 07/02/2023 06/02/2024 Active documented as of this encounter (statuses as of 07/03/2023) Active Problems Problem Noted Date Diagnosed Date [...] as of this encounter (statuses as of 07/03/2023) Resolved Problems Problem Noted Date Diagnosed Date [...] as of this encounter (statuses as of 07/03/2023) Immunizations Name Administration Dates Next Due Seasonal [...] encounter Miscellaneous Notes * Telephone Encounter - Gisselle Boone OSA - 07/03/2023 1:11 PM EST Pt was seen today in office * Telephone Encounter - Gisselle Boone OSA - 07/02/2023 12:13 PM EST My g sent 07/02 * Telephone Encounter - Karuna Gonzalez LPN - 07/02/2023 11:45 AM EST B12 injection has been ordered. Please call and schedule pt for a nurse visit to get her b12 shot. * Telephone Encounter - Elaine Pierce DO - 07/02/2023 10:56 AM EST Ok- ordered. Elaine Pierce DO * Telephone Encounter - Karuna Gonzalez LPN - 07/01/2023 2:40 PM EST Patient hasn't had b12 labs done since October 2022 and it was normal at that time. Ok for b12 shot, please advise. * Telephone Encounter - Rishi Mercado OSA - 07/01/2023 1:01 PM EST An order was requested for this patient. Name of Requesting Provider: pt Order Requested: B12 injection Diagnosis/Reason for Request: pt requesting - received in the past If order request is for Mammogram: Is the patient having any breast symptoms? N/A Is there a chance of ? N/A Has the patient had any breast problems in the past? NA What location AND department does the patient wish to have their order completed at? Fax Number, if applicable: Call Back Number: [phone]. If the caller is not a current patient, please advise the patient to call their current PCP to havethe order's prior to being seen in our office. The patient was informed that our providers would not order anything (medication, labs, etc.) prior to being seen. documented in this encounter Plan of Treatment Upcoming Encounters Date Type Department Care Team (Late st Contact Info) Description 07/24/2023 11:30 AM EST Imaging Radiology [facility] 1st [facility] [place] 132 [facility] [place] [address] 08/05/2023 10:00 AM EST Office Visit Sleep Disorders Ctr [facility] 132 [facility] [place] [phone] Janice Smiley CRNP 132 [facility] [place] [address] 08/06/2023 2:30 PM EST Anticoagulation Pharmacy, [facility] [address] [place] [address] Pharmacist1, [facility] [address] [place] [address] 08/13/2023 1:00 PM EST Imaging Radiology [address] 132 [facility] [place] [address] 08/20/2023 10:00 AM EST Office Visit Family Practice [facility] [address] [place] [address] Elaine Pierce, [address] [place] [address] 08/20/2023 10:20 AM EST Laboratory Laboratory [facility] [address] [place] [phone] Park, Lab [facility] [address] COUNT IN[facility]ES [facility] [place] [address] 10/08/2023 9:00 AM EDT Office Visit Cardiology, [facility] 132 [facility] [place] [address] Anika Blanc PA-C [address] [place] [address] 02/19/2024 1:00 PM EDT Office Visit Gynecology/Obstetrics [facility] 132 [facility] [place] [address] Back[place], RADHA Acosta [address] [place] [address] Scheduled Procedures Name Priority Associated Diagnoses Date/Ti [...] 10/12, 08/28/2022, Additional history exists Albumin/Creatinine Ratio 01/24/202401/23/2 023, 07/18/2021, 08/04/2018 Diabetic Eye Exam 03/03/2024 [...] 09/05/2020 LUNG CANCER SCREENING - USE SMARTSET 43002 Completed 04/01/2022, 02/02/2021, 04/12/2019, Additional history exists [...] as of this encounter Visit Diagnoses Diagnosis B12 deficiency- Primary Other B-complex deficiencies documented in this encounter Advance Directives Latest Code Status on File Code Status Date Activated Date Inactivated Comments Full Code 07/31/2017 9:32 PM 08/05/2017 8:45 PM This order reflects the patients wishes and were consensually agreed upon. Question Answer Comments Discussion of Advance Directives occurred with: Patient Does the patient have a Living Will? No Does the patient have Health Care Power of Parachute Repairer? No Care Teams Clinical Trial Associate Relationship Specialty Start Date End Date Elaine Pierce DO [address] [place] [address] PCP - General Family Medicine 08/23/21 documented as of this encounter
[2023-07-21 18:50] LABS: Adenovirus PCR Not Detected (NotDetected); Bordetella parapertussis PCR Not Detected (NotDetected); Bordetella pertussis PCR Not Detected (NotDetected); Chlamydia pneumoniae PCR Not Detected (NotDetected); Coronavirus 229E PCR Not Detected (NotDetected); Coronavirus HKU1 PCR Not Detected (NotDetected); Coronavirus NL63 PCR Not Detected (NotDetected); Coronavirus OC43PCR Not Detected (NotDetected); Human Metapneumovirus PCR Not Detected (NotDetected); Influenza A PCR Not Detected (NotDetected); Influenza B PCR Not Detected (NotDetected); Mycoplasma pneumoniae PCR Not Detected (NotDetected); Parainfluenza Virus 1 PCR Not Detected (NotDetected); Parainfluenza Virus 2 PCR Not Detected (NotDetected); Parainfluenza Virus 3 PCR Not Detected (NotDetected); Parainfluenza Virus 4 PCR Not Detected (NotDetected); Respiratory Syncytial VirusPCR Not Detected (NotDetected)
[2023-07-21 18:53] LABS: Coronavirus CoV-2 (COVID19)PCR DETECTED (NotDetected); Rhinovirus/Enterovirus PCR DETECTED (NotDetected)
[2023-07-21] MEDS: guaiFENesin 600 MG TABCR PO SCH (20:59)
[2023-07-21] MEDS: GABAPENTIN 600 MG TAB PO SCH (20:59)
[2023-07-21] MEDS: METOPROLOL SUCC 50MG EXT REL TAB PO SCH (21:00)
[2023-07-21] MEDS: FLUTICASONE PROPIONATE NA SPR 16 GM BTL SCH (21:01)
--- OUTSIDE RECORDS SUMMARY | 2023-07-22 00:03 | External Medical Summary | Summary of Care ---
Author Name Unknown Organization [facility] Address [address] [place] [address] Phone [phone] Care Team Providers Care Tobacco Sizer Name Role Phone StanElaine DO Primary Care Provider Reason for Visit * Reason Onset Date Comments Advice 07/21/2023 Encounter Details Date Type Department Care Team (Late st Contact Info) Description 07/21/2023 Telephone Access Center, [place] [address] [facility] *DO NOT REMOVE THIS DEPARTMENT* [place] [address] Services, Scheduling [address] [place] [address] Advice Allergies Active Allergy Reactions Criticality Noted Date Comments Clindamycin Hives 09/06/2019 Penicillins Hives 02/20/2012 Sulfa Antibiotics Hives 02/20/2012 documented as of this encounter (statuses as of 07/21/2023) Medications Medication Sig Dispensed Refills Start Date [...] (toPROL XL)Indications:Fatig ue, unspecified type,Palpitations,Di lated cardiomyopathy ([facility]),Chronic diastolic CHF (congestive heart failure) ([facility]),RBBB (right bundle branch block),Factor V Leiden ([facility]),SVT (supraventricular tachycardia) Take 1 Tablet by mouth in the morning and 1 Tablet before bedtime. 180 Tablet 3 03/31/2023 Active Gabapentin 600 MG Oral Tablet (Neurontin)Indicatio ns:Numbness and tingling of both feet,Dysesthesia TAKE 1 TABLET BY MOUTH 3 TIMES DAILY 180 Tablet 3 05/20/2023 Active Furosemide 40 MG Oral Tablet (Lasix)Indications:H eart failure, systolic, due to idiopathic cardiomyopathy ([facility]) Take 1 Tablet by mouth [...] 07/15/2023 Active Vitamin D (Ergocalciferol) 1.25 MG (06560 UT) Oral Capsule (Drisdol) TAKE 1 CAPSULE [...] inj 1,000 mcgIndications:B12 deficiency 1000 mcg IM [id number] 07/02/2023 06/02/2024 Active documented as of this encounter (statuses as of 07/21/2023) Active Problems Problem Noted Date Diagnosed Date [...] as of this encounter (statuses as of 07/21/2023) Resolved Problems Problem Noted Date Diagnosed Date [...] as of this encounter (statuses as of 07/21/2023) Immunizations Name Administration Dates Next Due Seasonal [...] encounter Miscellaneous Notes * Telephone Encounter - Erica Rolle OSA - 07/21/2023 10:02 AM EST Patient call in stating that she have COVID for the past 12 days and her O2 is around 70. Patient state she would like to speak With Janice Smiley, patient ask if possible For her to call her. Please advice Thank you Scheduling services documented in this encounter Plan of Treatment Upcoming Encounters Date Type Department Care Team (Late st Contact Info) Description 07/24/2023 11:30 AM EST Imaging Radiology [facility] 1st [facility] 132 [facility] [place] [address] 08/05/2023 10:00 AM EST Office Visit Sleep Disorders Ctr [facility] 132 [facility] [place] [phone] Janice Smiley CRNP [address] [place] [address] 08/06/2023 2:30 PM EST Anticoagulation Pharmacy, [facility] [address] [place] [address] Pharmacist1, [facility] [address] [facility] [place] [address] 08/13/2023 1:00 PM EST Imaging Radiology [facility] 132 [facility] [place] [address] 08/20/2023 10:00 AM EST Office Visit Family Practice [facility] [address] [place] [address] Elaine Pierce, 200 [facility] [place] [address] 08/20/2023 10:20 AM EST Laboratory Laboratory [facility] [address] [place] [phone] Park, Lab [facility] 200 [facility] [place], [place] [address] 10/08/2023 9:00 AM EDT Office Visit Cardiology, [facility] [address] [place] [address] Anika Blanc, MIKE [address] [place] [address] 02/19/2024 1:00 PM EDT Office Visit Gynecology/Obstetrics [facility] [address] [place] [address] Ally Banuelos CRNP [address] [place] [address] Scheduled Procedures Name Priority Associated Diagnoses Date/Ti [...] Additional history exists Pap Smear 04/09/2026 04/09/2023, 070 07/2018, 11/15/2015, Additional history exists Cervical Cancer Screening 04/09/2028 HPV/Co-Test 04/09/2028 04/09/2023 Lipid Panel 05/13/2028 05/13/2023, 01/11, 03/04/2022, Additional history exists Hepatitis C Screening Completed 06/20/2015 Alpha-1 Antitrypsin Completed 09/05/2020 LUNG CANCER SCREENING - USE SMARTSET 00592 Completed 04/01/2022, 02/02/2021, 04/12/2019, Additional history exists Influenza Vaccine (FLU shot) Completed , 04/29/2022, 06/22/2020, Additional history exists GARDASIL-HPV IMMUNIZATION SERIES Aged Out No longer eligible based on patient's age to complete this topic MENINGOCOCCAL (MENACTRA/MENVEO) Aged Out No longer eligible based on patient's age to complete this topic documented as of this encounter Medical Devices Not on filedocumented as of this encounter Advance Directives Latest Code Status on File Code Status Date Activated Date Inactivated Comments Full Code 07/31/2017 9:32 PM 08/05/2017 8:45 PM This order reflects the patients wishes and were consensually agreed upon. Question Answer Comments Discussion of Advance Directives occurred with: Patient Does the patient have a Living Will? No Does the patient have Health Care Power of Production Solderer? No Care Teams Tobacco Sizer Relationship Specialty Start Date End Date Elaine Pierce DO [address] [place] [address] PCP - General Family Medicine 08/23/21 documented as of this encounter
--- OUTSIDE RECORDS SUMMARY | 2023-07-22 00:03 | External Medical Summary | Summary of Care ---
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 Allergies Active Allergy Reactions Criticality Noted Date [...] (toPROL XL)Indications:Fatig ue, unspecified type,Palpitations,Di lated cardiomyopathy ([facility]),Chronic diastolic CHF (congestive heart failure) ([facility]),RBBB (right bundle branch block),Factor V Leiden ([facility]),SVT (supraventricular tachycardia) Take 1 Tablet by mouth in the morning and 1 Tablet before bedtime. 180 Tablet 3 03/31/2023 Active Gabapentin 600 MG Oral Tablet (Neurontin)Indicatio ns:Numbness and tingling of both feet,Dysesthesia TAKE 1 TABLET BY MOUTH 3 TIMES DAILY 180 Tablet 3 05/20/2023 Active Furosemide 40 MG Oral Tablet (Lasix)Indications:H eart failure, systolic, due to idiopathic cardiomyopathy ([facility]) Take 1 Tablet by mouth [...] 07/15/2023 Active Vitamin D (Ergocalciferol) 1.25 MG (38592 UT) Oral Capsule (Drisdol) TAKE 1 CAPSULE [...] inj 1,000 mcgIndications:B12 deficiency 1000 mcg IM [id number] 07/02/2023 06/02/2024 Active documented as of this [...] encounter Miscellaneous Notes * Telephone Encounter - Harriett Alicea, HOMER - 07/21/2023 10:39 AM EST Pt states she has O2 and uses it when she is laying in bed or sitting in her chair. States she takes it off when she gets up and goes to the bathroom or kitchen. That is when her O2 drops into the 70's.When pt was asked why she takes it off,she didn't know why. Pt states it cheung when she breathes.Also coughing up discolored mucus. Pt has had a fever since she tested positive for covid 12 days ago. Pt is taking tyln for the fever. Pt denies taking anything for her cough,congestion. SOB,fatigue. Pt was advised she should go to the ER for an eval. Pt states she would need to call her sister. Asked if the office could call her-Sailaja. Our office called the pt's sister. Sailaja states she willbe taking the pt to the ER. * Telephone Encounter - Erica Rolle OSA [...] Care Team (Late st Contact Info) Description 08/05/2023 10:00 AM EST Office Visit Sleep Disorders Ctr [facility] [place] [address] [id number] Janice Smiley CRNP [address] [place] [address] 08/06/2023 2:30 PM EST Anticoagulation Pharmacy, [facility] [address] [place] [address] Pharmacist1, [facility] [address] [place] [address] 08/12/2023 11:00 AM EST Imaging Radiology [address] [address] 08/13/2023 1:00 PM EST Imaging Radiology [address] [place] [address] 08/20/2023 10:00 AM EST Office Visit Family Practice [facility] [place] [address] [place] [address] Elaine Pierce, DO [address] [place] [address] 08/20/2023 10:20 AM EST Laboratory Laboratory [place] [place] [address] [place], [place] [id number] [facility] [address] [place] [address] 10/08/2023 9:00 AM EDT Office Visit Cardiology, [facility] [address] [facility] [place] [address] Anika Blanc PA-C [address] [place] [address] 02/19/2024 1:00 PM EDT Office Visit Gynecology/Obstetrics [facility] [address] [place] [address] Ally Banuelos CRNP [address] [place] [address] Scheduled Procedures Name Priority Associated Diagnoses Date/Ti [...] 09/05/2020 LUNG CANCER SCREENING - USE SMARTSET [id number] Completed 04/01/2022, 02/02/2021, 04/12/2019, Additional history exists [...] the patient have Health Care Power of Six Sigma Black Belt Engineer? No Care Teams Dairy Cattle Farm Manager Relationship Specialty Start Date End Date Elaine Pierce DO [address] [place] [address] PCP - General Family Medicine 08/23/21 documented as of this encounter
[2023-07-22 05:01] LABS: Hematocrit (blood only) 37.3 % (37.0-47.0); Mean Corpuscular Hemoglobin 30.3 pg (25.0-34.0); Mean Corpuscular Hgb Conc 34.9 g/dL (32.0-36.0); Mean Corpuscular Volume 86.9 fL (80.0-100.0); Mean Platelet Volume 9.7 fL (9.4-12.4); Platelet Count 256 K/uL (130-400); RDW Coefficient of Variation 13.5 % (11.5-14.5); RDW Standard Deviation 42.9 fL (36.4-46.3); Red Blood Count 4.29 M/uL (4.20-5.40); White Blood Count 3.57 K/ul (4.8-10.8)
[2023-07-22 05:17] LABS: Albumin Globulin Ratio 1.1 (0.9-2); Albumin Level 3.8 gm/dl (3.4-5.0); BUN Creatinine Ratio 14.1 (10-20); Bilirubin,Total 0.8 mg/dl (0.2-1.0); Calcium 8.7 mg/dl (8.6-10.3); Creatinine Clr Calc Pharmacy 89.9 ml/min; Est GFR (African American) 93.1 ml/min; Est GFR (Non-African American) 80.3 ml/min; Globulin 3.6 gm/dl (2.5-4.0); Potassium 3.5 mmol/L (3.5-5.1); Total Protein 7.4 gm/dl (6.0-8.3)
[2023-07-22 05:29] LABS: INR 2.9 (0.9-1.1); Prothrombin Time 29.4 Seconds (9.0-12.0)
[2023-07-22] MEDS: LEVOTHYROXINE SODIUM 50 MCG TABLET PO SCH (06:07)
[2023-07-22] MEDS: PANTOprazole 40 MG TAB PO SCH (08:10)
[2023-07-22] MEDS: FLUTICASONE PROPIONATE NA SPR 16 GM BTL SCH ×2 (08:14→23:36)
[2023-07-22] MEDS: METOPROLOL SUCC 50MG EXT REL TAB PO SCH ×2 (08:18→20:40)
[2023-07-22] MEDS: guaiFENesin 600 MG TABCR PO SCH ×2 (08:18→20:39)
[2023-07-22] MEDS: GABAPENTIN 600 MG TAB PO SCH ×3 (08:18→20:40)
[2023-07-22] MEDS ORDERED: Nursing to Pharmacy Communication SCH (08:45)
[2023-07-22] MEDS ORDERED: lisinopril 2.5 MG TAB PO SCH ×2 (09:00→14:00)
[2023-07-22] MEDS ORDERED: FUROSEMIDE 40 MG/4 ML VIAL IV SCH (09:00)
[2023-07-22] MEDS ORDERED: FAMOTIDINE 10 MG TABLET PO PRN (09:19)
[2023-07-22] MEDS: dexAMETHasone 6 MG in SYRINGE 0 ML IV SCH (10:33)
[2023-07-22] MEDS ORDERED: ALBUT/IPRATROP 3MG/0.5MG NEB 3 ML VIAL NEB PRN (12:03)
--- NOTE | 2023-07-22 13:09 | Hospitalist Progress Note ---
Date of Service July 22, 2023 Assessment & Plan (1) COVID: (2) Hypertensive heart disease with chronic diastolic congestive heart failure: (3) PAF (paroxysmal atrial fibrillation): (4) COPD (chronic obstructive pulmonary disease): (5) Type 2 diabetes mellitus: (6) Chronic anticoagulation: (7) Factor V Leiden: (8) Nocturnal hypoxemia: (9) History of deep venous thrombosis: (10) Hypertension: (11) GERD (gastroesophageal reflux disease): (12) Hypothyroidism: Plan Ms. Mohan is a 63 year old female that presented to the ED with complaints of SOB. She has been feeling ill for the last 14 days; but remarks worsening over the past 48 hours with noted orthopnea and hypoxia reportedly SpO2 into the mid 70s. She tested positive for COVID at home 5 days ago. She does report a cough but is not bringing anything up. She typically wears oxygen at night historically and has a home oxygen sensor. She reports that she has not taken her Lasix for the past 5 days as she thought it was making her breathing worse. Additional past medical history includes restrictive lung disease, factor V Leiden, diastolic CHF, paroxysmal A-fib, HTN, nli-midcnwg-dphtdprbz diabetes, hypothyroidism, and hyperlipidemia. Also do note patient has a known history of viral myocarditis. Patient notes that she is to have an outpatient sleep study. Chest x-ray negative for acute cardio pulmonary disease. No leukocytosis, otherwise lab work unremarkable. Troponin negative. Last echocardiogram 10/2022 with LV wall motion normal EF 55 to 60% with mild MR/TR grade 1 diastolic dysfunction. COVID 19 Infection Enterovirus infection Hypoxia secondary to mild H/O COPD, nocturnal hypoxemia---on 2 L supplemental oxygen at bedtime --BioFire positive for COVID-19, enterovirus --CXR:Reticular interstitial opacities are nonspecific. Interstitial edema or bronchitis cannot be excluded. -- Continue dexamethasone Empirically started on doxycycline Does not prefer to be started on remdesivir Titrate oxygen to keep saturations 88 to 92% Nebs as needed Pulmonary hygiene with Mucinex, Flutter valve, Incentive spirometry Hypertensive heart disease Acute on Chronic diastolic heart failure Generalized weakness Reportedly has missed five doses of her home Lasix during her illness Continue Lasix 40 mg IV daily Recheck chest x-ray tomorrow Plan to transition to p.o. Lasix as able Type 2 diabetes mellitus: Chronic Ywz-rtwljnd-pkbwcexjk HbA1c pending Hold metformin Continue insulin while hospitalized Monitor BGs HTN: Hold Toprol as BP relatively low Continue metoprolol Monitor BP Paroxysmal A-fib: Chronic Continue metoprolol and Coumadin INR 2.9 today History of LLE DVT: Chronic anticoagulation: Chronic Continue Coumadin Factor V Leiden: Follows with heme-onc Nocturnal hypoxia Suspected sleep apnea Plan for outpatient sleep study Hypothyroidism: Chronic stable Continue levothyroxine GERD: Chronic Continue Carafate, PPI DVT Px: Coumadin CODE STATUS: Full code Admission and Anticipated Discharge Date Admission Date: July 21, 2023 Subjective Patient is seen and examined at bedside Less dyspnea today when compared to yesterday Still has some cough with expectoration associate with some pleuritic discomfort Also reports diarrhea today Saturating well on supplemental oxygen Review of Systems Review of Systems: All systems reviewed & are unremarkable except as noted in Subjective Physical Exam Physical Exam: Physical Exam: Vitals signs as noted above General Appearance:Obese, no apparent distress Head: normocephalic, Atraumatic Eyes: normal inspection, EOMI Neck: supple, Trachea midline Respiratory/Chest: Decrease breath sounds, CTA, No accessory muscle use Cardiovascular: S1, S2, No murmur Abdomen/GI:Soft, Non tender, Bowel sounds present Extremities/Musculoskeletal:normal inspection, Chronic LLE edema Neurologic/Psych:AAOX3, grossly no focal neurological deficits Skin: normal color, warm Results & Data Results & Data Vital Signs (Past 12 Hours) Vital Signs Temp Pulse Pulse Resp BP BP Pulse Ox 07/22/23 12:00 74 17 07/22/23 11:30 76 19 07/22/23 11:22 36.6 C 94 H 16 114/70 92 07/22/23 10:36 79 18 108/68 94 07/22/23 10:30 75 15 07/22/23 10:00 78 14 07/22/23 09:30 84 17 07/22/23 09:00 67 24 07/22/23 08:00 94/69 L 07/22/23 08:00 62 17 93 07/22/23 07:45 36.8 C 70 18 95/66 L 91 07/22/23 07:12 67 07/22/23 07:00 66 19 07/22/23 07:00 99/66 L 07/22/23 06:30 67 19 07/22/23 06:30 99/72 L 07/22/23 06:00 57 L 18 07/22/23 05:30 66 14 07/22/23 05:30 93/59 L 07/22/23 05:00 68 18 07/22/23 05:00 95/59 L 07/22/23 04:57 73 20 07/22/23 04:57 105/64 07/22/23 04:35 70 19 07/22/23 02:00 65 21 07/22/23 01:30 71 23 07/22/23 01:30 109/74 O2 Del Method O2 Flow Rate 07/22/23 12:00 07/22/23 11:30 07/22/23 11:22 Nasal Cannula 4 07/22/23 10:36 Nasal Cannula 2 07/22/23 10:30 07/22/23 10:00 07/22/23 09:30 07/22/23 09:00 07/22/23 08:00 07/22/23 08:00 07/22/23 07:45 Nasal Cannula 3 07/22/23 07:12 07/22/23 07:00 07/22/23 07:00 07/22/23 06:30 07/22/23 06:30 07/22/23 06:00 07/22/23 05:30 07/22/23 05:30 07/22/23 05:00 07/22/23 05:00 07/22/23 04:57 07/22/23 04:57 07/22/23 04:35 07/22/23 02:00 07/22/23 01:30 07/22/23 01:30 Laboratory Results Short CBC 07/22/23 Range/Units 04:31 WBC 3.57 L (4.8-10.8) K/ul Hgb 13.0 (12.0-16.0) g/dl Hct 37.3 (37.0-47.0) % Plt Count 256 (130-400) K/uL BMP 07/21/23 07/22/23 12:22 04:31 Sodium 137 137 Potassium 4.0 3.5 Chloride 106 102 Carbon Dioxide 23 26 BUN 7 11 Creatinine 0.69 0.78 Glucose 105 H 98 Calcium 9.1 8.7 Liver Function 07/21/23 07/22/23 Range/Units 12:22 04:31 Total Bilirubin 0.5 0.8 (0.2-1.0) mg/dl AST 21 18 (13-39) U/L ALT 10 9 (7-52) U/L Alkaline Phosphatase 94 83 (34-104) U/L Albumin 4.0 3.8 (3.4-5.0) gm/dl
[2023-07-22] MEDS: DOXYCYCLINE HYCLATE 100 MG CAP PO SCH ×2 (13:15→20:40)
[2023-07-22] MEDS: SUCRALFATE 1 GM TAB PO SCH ×2 (13:15→17:09)
[2023-07-22] MEDS: WARFARIN SOD 5 MG TAB PO SCH (17:09)
[2023-07-23 06:38] LABS: Hematocrit (blood only) 36.8 % (37.0-47.0); Hemoglobin 12.5 g/dl (12.0-16.0); Mean Corpuscular Hemoglobin 28.9 pg (25.0-34.0); Mean Platelet Volume 9.7 fL (9.4-12.4); Platelet Count 322 K/uL (130-400); RDW Standard Deviation 40.4 fL (36.4-46.3); Red Blood Count 4.33 M/uL (4.20-5.40); White Blood Count 4.83 K/ul (4.8-10.8)
[2023-07-23 06:59] LABS: BUN Creatinine Ratio 21.7 (10-20); C Reactive Protein 2.88 mg/dl (0-0.5); Calcium 9.1 mg/dl (8.6-10.3); Creatinine Clr Calc Pharmacy 116.4 ml/min; Est GFR (African American) 111.6 ml/min; Est GFR (Non-African American) 96.3 ml/min; Magnesium 2.2 mg/dl (1.7-2.4); Phosphorus 2.4 mg/dl (2.5-4.9); Potassium 3.9 mmol/L (3.5-5.1)
[2023-07-23 07:14] LABS: INR 2.4 (0.9-1.1); Prothrombin Time 25.1 Seconds (9.0-12.0)
--- NOTE | 2023-07-23 07:38 | XRay Report ---
SINGLE VIEW CHEST CLINICAL HISTORY: Congestive heart failure FINDINGS: An AP, portable, upright chest radiograph is compared to study dated 07/21/2023. The heart is enlarged noting atherosclerotic calcification of the thoracic aorta. There is pulmonary vascular con gestion. Subpleural reticulation is noted throughout both lungs. Mild bilateral airspace opacities li emperatriz represent interstitial edema. Dependent airspace opacities are seen at both lung bases. No large pleural effusion or pneumothorax is seen. The skeletal structures are osteopenic. The bony thorax is grossly intact. IMPRESSION: 1. Cardiomegaly with evidence of congestive failure. Bilateral airspace opacities likely represent mi ld pulmonary edema. Correlate clinically. 3. No large pleural effusion is seen. ACT 112: Negative or not required by law. Electronically signed by: Kirk Lyon M.D. 07/23/2023 7:37 AM
[2023-07-23 07:43] LABS: Estimated Average Glucose 134 mg/dl; Hemoglobin A1C 6.3 % (4.5-5.6)
[2023-07-23] MEDS: LEVOTHYROXINE SODIUM 50 MCG TABLET PO SCH (08:10)
[2023-07-23] MEDS: ADVANCED PROBIOTIC 1250 MG CAPSULE PO SCH (08:12)
[2023-07-23] MEDS: SUCRALFATE 1 GM TAB PO SCH ×3 (08:12→16:27)
[2023-07-23] MEDS: DOXYCYCLINE HYCLATE 100 MG CAP PO SCH ×2 (08:13→21:16)
[2023-07-23] MEDS: METOPROLOL SUCC 50MG EXT REL TAB PO SCH (08:13)
[2023-07-23] MEDS: GABAPENTIN 600 MG TAB PO SCH ×3 (08:13→21:17)
[2023-07-23] MEDS: PANTOprazole 40 MG TAB PO SCH (08:13)
[2023-07-23] MEDS: FLUTICASONE PROPIONATE NA SPR 16 GM BTL SCH ×2 (08:14→21:16)
[2023-07-23] MEDS: CETIRIZINE HCL 10 MG TABLET PO SCH (08:16)
[2023-07-23] MEDS: ATORVASTATIN 10 MG TAB PO SCH (08:16)
[2023-07-23] MEDS: dexAMETHasone 6 MG in SYRINGE 0 ML IV SCH (08:17)
[2023-07-23] MEDS: METOPROLOL SUCC 25MG EXT REL TAB PO SCH ×2 (08:43→21:21)
[2023-07-23] MEDS: guaiFENesin 600 MG TABCR PO SCH ×2 (10:55→21:17)
[2023-07-23] MEDS: FUROSEMIDE 40 MG TAB PO SCH (10:56)
[2023-07-23] MEDS: POT PHOSPHATE MONOBASIC W/ SOD TAB PO SCH ×3 (13:30→21:18)
[2023-07-23] MEDS: WARFARIN SOD 5 MG TAB PO SCH (16:27)
--- NOTE | 2023-07-23 17:22 | Hospitalist Progress Note ---
Date of Service July 23, 2023 Assessment & Plan (1) COVID: (2) Hypertensive heart disease with chronic diastolic congestive heart failure: (3) PAF (paroxysmal atrial fibrillation): (4) COPD (chronic obstructive pulmonary disease): (5) Type 2 diabetes mellitus: (6) Chronic anticoagulation: (7) Factor V Leiden: (8) Nocturnal hypoxemia: (9) History of deep venous thrombosis: (10) Hypertension: (11) GERD (gastroesophageal reflux disease): (12) Hypothyroidism: Plan Ms. Mohan is a 63 year old female that presented to the ED with complaints of SOB. She has been feeling ill for the last 14 days; but remarks worsening over the past 48 hours with noted orthopnea and hypoxia reportedly SpO2 into the mid 70s. She tested positive for COVID at home 5 days ago. She does report a cough but is not bringing anything up. She typically wears oxygen at night historically and has a home oxygen sensor. She reports that she has not taken her Lasix for the past 5 days as she thought it was making her breathing worse. Additional past medical history includes restrictive lung disease, factor V Leiden, diastolic CHF, paroxysmal A-fib, HTN, cgg-hkxiido-enrmxijjk diabetes, hypothyroidism, and hyperlipidemia. Also do note patient has a known history of viral myocarditis. Patient notes that she is to have an outpatient sleep study. Chest x-ray negative for acute cardio pulmonary disease. No leukocytosis, otherwise lab work unremarkable. Troponin negative. Last echocardiogram 10/2022 with LV wall motion normal EF 55 to 60% with mild MR/TR grade 1 diastolic dysfunction. COVID 19 Infection Enterovirus infection Hypoxia secondary to mild H/O COPD, nocturnal hypoxemia---on 2 L supplemental oxygen at bedtime --BioFire positive for COVID-19, enterovirus --CXR:Reticular interstitial opacities are nonspecific. Interstitial edema or bronchitis cannot be excluded. -- Continue dexamethasone Empirically started on doxycycline Does not prefer to be started on remdesivir Titrate oxygen to keep saturations 88 to 92% Nebs as needed Pulmonary hygiene with Mucinex, Flutter valve, Incentive spirometry Continue current management Hypertensive heart disease Acute on Chronic diastolic heart failure Generalized weakness Reportedly has missed five doses of her home Lasix during her illness Continue Lasix Monitor volume status Type 2 diabetes mellitus: Chronic Yru-oqoxxou-euzvohwcn HbA1c pending Hold metformin Continue insulin while hospitalized Monitor BGs HTN: BP low Hold lisinopril Metoprolol dose decreased to 25 mg twice daily Monitor BP Paroxysmal A-fib: Chronic Continue metoprolol and Coumadin INR 2.4 today History of LLE DVT: Chronic anticoagulation: Chronic Continue Coumadin Factor V Leiden: Follows with heme-onc Nocturnal hypoxia Suspected sleep apnea Plan for outpatient sleep study Hypothyroidism: Chronic stable Continue levothyroxine GERD: Chronic Continue Carafate, PPI DVT Px: Coumadin CODE STATUS: Full code Admission and Anticipated Discharge Date Admission Date: July 21, 2023 Subjective Patient is seen and examined at bedside Noted to be desaturating with ambulation by RN States feeling tired Less cough, dyspnea today Diarrhea much improved No other complaints Review of Systems Review of Systems: All systems reviewed & are unremarkable except as noted in Subjective Physical Exam Physical Exam: Physical Exam: Vitals signs as noted above General Appearance:Obese, no apparent distress Head: normocephalic, Atraumatic Eyes: normal inspection, EOMI Neck: supple, Trachea midline Respiratory/Chest: Decrease breath sounds, CTA, No accessory muscle use Cardiovascular: S1, S2, No murmur Abdomen/GI:Soft, Non tender, Bowel sounds present Extremities/Musculoskeletal:normal inspection, Chronic LLE edema Neurologic/Psych:AAOX3, grossly no focal neurological deficits Skin: normal color, warm Results & Data Results & Data Vital Signs (Past 12 Hours) Vital Signs Temp Pulse Pulse Resp BP Pulse Ox O2 Del Method 07/23/23 15:47 36.4 C L 73 16 102/64 88 L Nasal Cannula 07/23/23 15:38 93 Nasal Cannula 07/23/23 15:33 92 H 07/23/23 11:37 Nasal Cannula 07/23/23 11:25 36.4 C L 68 16 119/77 94 Nasal Cannula 07/23/23 09:24 94 Nasal Cannula 07/23/23 07:56 36.3 C L 56 L 16 101/62 97 Nasal Cannula 07/23/23 07:28 50 L O2 Flow Rate 07/23/23 15:47 3 07/23/23 15:38 3.5 07/23/23 15:33 07/23/23 11:37 3.5 07/23/23 11:25 3.5 07/23/23 09:24 4 07/23/23 07:56 4 07/23/23 07:28 Laboratory Results Short CBC 07/23/23 Range/Units 05:32 WBC 4.83 (4.8-10.8) K/ul Hgb 12.5 (12.0-16.0) g/dl Hct 36.8 L (37.0-47.0) % Plt Count 322 (130-400) K/uL BMP 07/23/23 05:32 Sodium 137 Potassium 3.9 Chloride 103 Carbon Dioxide 24 BUN 13 Creatinine 0.60 Glucose 123 H Calcium 9.1
[2023-07-24 04:10] LABS: BUN Creatinine Ratio 22.2 (10-20); Calcium 8.6 mg/dl (8.6-10.3); Est GFR (African American) 102.6 ml/min; Est GFR (Non-African American) 88.5 ml/min; Phosphorus 3.4 mg/dl (2.5-4.9); Potassium 3.4 mmol/L (3.5-5.1)
[2023-07-24 04:11] LABS: INR 2.6 (0.9-1.1)
[2023-07-24] MEDS: LEVOTHYROXINE SODIUM 50 MCG TABLET PO SCH (05:45)
[2023-07-24] MEDS: ADVANCED PROBIOTIC 1250 MG CAPSULE PO SCH (08:38)
[2023-07-24] MEDS: dexAMETHasone 6 MG in SYRINGE 0 ML IV SCH (08:38)
[2023-07-24] MEDS: PANTOprazole 40 MG TAB PO SCH (08:38)
[2023-07-24] MEDS: CETIRIZINE HCL 10 MG TABLET PO SCH (08:39)
[2023-07-24] MEDS: METOPROLOL SUCC 25MG EXT REL TAB PO SCH ×2 (08:39→20:25)
[2023-07-24] MEDS: GABAPENTIN 600 MG TAB PO SCH ×3 (08:40→20:26)
[2023-07-24] MEDS: SUCRALFATE 1 GM TAB PO SCH ×3 (08:40→15:47)
[2023-07-24] MEDS: FLUTICASONE PROPIONATE NA SPR 16 GM BTL SCH ×2 (08:40→20:24)
[2023-07-24] MEDS: POT PHOSPHATE MONOBASIC W/ SOD TAB PO SCH (08:40)
[2023-07-24] MEDS: guaiFENesin 600 MG TABCR PO SCH ×2 (08:41→20:26)
[2023-07-24] MEDS: FUROSEMIDE 40 MG TAB PO SCH (08:41)
[2023-07-24] MEDS: DOXYCYCLINE HYCLATE 100 MG CAP PO SCH ×2 (08:41→20:26)
[2023-07-24] MEDS ORDERED: POTASSIUM CHLORIDE CRTAB 20 MEQ TABCR PO ONE (09:31)
[2023-07-24 12:41] LABS: Adenovirus F 40/41 PCR Not Detected (NotDetected); Astrovirus PCR Not Detected (NotDetected); Campylobacter PCR Not Detected (NotDetected); Cryptosporidium PCR Not Detected (NotDetected); Cyclospora cayetanensis PCR Not Detected (NotDetected); Entamoeba histolytica PCR Not Detected (NotDetected); Enteroaggregative E.coli(EAEC) Not Detected (NotDetected); Enteropathogenic E.coli (EPEC) Not Detected (NotDetected); Enterotoxigenic E.coli (ETEC) Not Detected (NotDetected); Giardia lamblia PCR Not Detected (NotDetected); Norovirus GI/GII PCR Not Detected (NotDetected); Plesiomonas shigelloides PCR Not Detected (NotDetected); Rotavirus A PCR Not Detected (NotDetected); Salmonella PCR Not Detected (NotDetected); Sapovirus PCR Not Detected (NotDetected); Shiga-like Toxin E.coli (STEC) Not Detected (NotDetected); Shigella/Enteroinvasive E.coli Not Detected (NotDetected); Vibrio cholerae PCR Not Detected (NotDetected); Vibrio species PCR Not Detected (NotDetected); Yersinia enterocolitica PCR Not Detected (NotDetected)
[2023-07-24] MEDS: WARFARIN SOD 5 MG TAB PO SCH (15:47)
--- NOTE | 2023-07-24 16:27 | Hospitalist Progress Note ---
Date of Service July 24, 2023 Assessment & Plan (1) COVID: (2) Hypertensive heart disease with chronic diastolic congestive heart failure: (3) PAF (paroxysmal atrial fibrillation): (4) COPD (chronic obstructive pulmonary disease): (5) Type 2 diabetes mellitus: (6) Chronic anticoagulation: (7) Factor V Leiden: (8) Nocturnal hypoxemia: (9) History of deep venous thrombosis: (10) Hypertension: (11) GERD (gastroesophageal reflux disease): (12) Hypothyroidism: Plan Ms. Mohan is a 63 year old female that presented to the ED with complaints of SOB. She has been feeling ill for the last 14 days; but remarks worsening over the past 48 hours with noted orthopnea and hypoxia reportedly SpO2 into the mid 70s. She tested positive for COVID at home 5 days ago. She does report a cough but is not bringing anything up. She typically wears oxygen at night historically and has a home oxygen sensor. She reports that she has not taken her Lasix for the past 5 days as she thought it was making her breathing worse. Additional past medical history includes restrictive lung disease, factor V Leiden, diastolic CHF, paroxysmal A-fib, HTN, umc-gjguofo-hjkcsmiam diabetes, hypothyroidism, and hyperlipidemia. Also do note patient has a known history of viral myocarditis. Patient notes that she is to have an outpatient sleep study. Chest x-ray negative for acute cardio pulmonary disease. No leukocytosis, otherwise lab work unremarkable. Troponin negative. Last echocardiogram 10/2022 with LV wall motion normal EF 55 to 60% with mild MR/TR grade 1 diastolic dysfunction. COVID 19 Infection Enterovirus infection Hypoxia secondary to mild H/O COPD, nocturnal hypoxemia---on 2 L supplemental oxygen at bedtime --BioFire positive for COVID-19, enterovirus --CXR:Reticular interstitial opacities are nonspecific. Interstitial edema or bronchitis cannot be excluded. -- Continue dexamethasone Empirically started on doxycycline Does not prefer to be started on remdesivir Titrate oxygen to keep saturations 88 to 92% Nebs as needed Pulmonary hygiene with Mucinex, Flutter valve, Incentive spirometry Clinically improving Will consider 2 step prior to discharge Hypertensive heart disease Acute on Chronic diastolic heart failure Generalized weakness Reportedly has missed five doses of her home Lasix during her illness Continue Lasix Monitor volume status Type 2 diabetes mellitus: Chronic Glk-nagkwio-pzigmkoyh HbA1c 6.3 Hold metformin Continue insulin while hospitalized Monitor BGs HTN: BP low Hold lisinopril for now Metoprolol dose decreased to 25 mg twice daily Monitor BP Paroxysmal A-fib: Chronic Continue metoprolol and Coumadin INR 2.6 today History of LLE DVT: Chronic anticoagulation: Chronic Continue Coumadin Factor V Leiden: Follows with heme-onc Nocturnal hypoxia Suspected sleep apnea Plan for outpatient sleep study Hypothyroidism: Chronic stable Continue levothyroxine GERD: Chronic Continue Carafate, PPI DVT Px: Coumadin CODE STATUS: Full code Disposition Likely discharge home tomorrow if stable Admission and Anticipated Discharge Date Admission Date: July 21, 2023 Subjective Patient is seen and examined at bedside Less cough, dyspnea today Diarrhea resolved No other complaints Saturating well on 2 L supplemental oxygen Denies any chest pain, dizziness, nausea, vomiting, abdominal pain Review of Systems Review of Systems: All systems reviewed & are unremarkable except as noted in Subjective Physical Exam Physical Exam: Physical Exam: Vitals signs as noted above General Appearance:Obese, no apparent distress Head: normocephalic, Atraumatic Eyes: normal inspection, EOMI Neck: supple, Trachea midline Respiratory/Chest: Decrease breath sounds, CTA, No accessory muscle use Cardiovascular: S1, S2, No murmur Abdomen/GI:Soft, Non tender, Bowel sounds present Extremities/Musculoskeletal:normal inspection, Chronic LLE edema Neurologic/Psych:AAOX3, grossly no focal neurological deficits Skin: normal color, warm Results & Data Results & Data Vital Signs (Past 12 Hours) Vital Signs Temp Pulse Pulse Resp BP BP Pulse Ox 07/24/23 15:49 36.4 C L 61 16 123/78 95 07/24/23 15:32 73 07/24/23 11:43 36.2 C L 64 16 130/79 93 07/24/23 10:32 07/24/23 07:42 36.5 C 58 L 18 104/63 95 07/24/23 07:23 48 L O2 Del Method O2 Flow Rate 07/24/23 15:49 Nasal Cannula 2 07/24/23 15:32 07/24/23 11:43 Room Air 07/24/23 10:32 Nasal Cannula 3 07/24/23 07:42 Nasal Cannula 3 07/24/23 07:23 Laboratory Results BMP 07/24/23 03:10 Sodium 137 Potassium 3.4 L Chloride 103 Carbon Dioxide 25 BUN 16 Creatinine 0.72 Glucose 133 H Calcium 8.6
[2023-07-25] MEDS: LEVOTHYROXINE SODIUM 50 MCG TABLET PO SCH (05:32)
[2023-07-25 06:40] LABS: INR 2.7 (0.9-1.1); Prothrombin Time 28.2 Seconds (9.0-12.0)
[2023-07-25 07:03] LABS: Calcium 8.8 mg/dl (8.6-10.3); Potassium 3.5 mmol/L (3.5-5.1)
[2023-07-25 07:09] LABS: BUN Creatinine Ratio 23.2 (10-20); Creatinine Clr Calc Pharmacy 101.9 ml/min; Est GFR (African American) 106.6 ml/min
[2023-07-25] MEDS: METOPROLOL SUCC 25MG EXT REL TAB PO SCH (07:47)
[2023-07-25] MEDS: FLUTICASONE PROPIONATE NA SPR 16 GM BTL SCH (07:47)
[2023-07-25] MEDS: guaiFENesin 600 MG TABCR PO SCH (07:47)
[2023-07-25] MEDS: PANTOprazole 40 MG TAB PO SCH (07:48)
[2023-07-25] MEDS: ADVANCED PROBIOTIC 1250 MG CAPSULE PO SCH (07:48)
[2023-07-25] MEDS: CETIRIZINE HCL 10 MG TABLET PO SCH (07:48)
[2023-07-25] MEDS: ATORVASTATIN 10 MG TAB PO SCH (07:48)
[2023-07-25] MEDS: FUROSEMIDE 40 MG TAB PO SCH (07:49)
[2023-07-25] MEDS: SUCRALFATE 1 GM TAB PO SCH ×2 (07:49→12:05)
[2023-07-25] MEDS: GABAPENTIN 600 MG TAB PO SCH ×2 (07:49→13:12)
[2023-07-25] MEDS: DOXYCYCLINE HYCLATE 100 MG CAP PO SCH (07:49)
[2023-07-25] MEDS: dexAMETHasone 6 MG in SYRINGE 0 ML IV SCH (07:52)
--- NOTE | 2023-07-25 14:32 | Hospitalist Progress Note ---
Date of Service July 25, 2023 Assessment & Plan (1) COVID: (2) Hypertensive heart disease with chronic diastolic congestive heart failure: (3) PAF (paroxysmal atrial fibrillation): (4) COPD (chronic obstructive pulmonary disease): (5) Type 2 diabetes mellitus: (6) Chronic anticoagulation: (7) Factor V Leiden: (8) Nocturnal hypoxemia: (9) History of deep venous thrombosis: (10) Hypertension: (11) GERD (gastroesophageal reflux disease): (12) Hypothyroidism: Plan Ms. Mohan is a 63 year old female that presented to the ED with complaints of SOB. She has been feeling ill for the last 14 days; but remarks worsening over the past 48 hours with noted orthopnea and hypoxia reportedly SpO2 into the mid 70s. She tested positive for COVID at home 5 days ago. She does report a cough but is not bringing anything up. She typically wears oxygen at night historically and has a home oxygen sensor. She reports that she has not taken her Lasix for the past 5 days as she thought it was making her breathing worse. Additional past medical history includes restrictive lung disease, factor V Leiden, diastolic CHF, paroxysmal A-fib, HTN, [id number]-rxddmqlbn diabetes, hypothyroidism, and hyperlipidemia. Also do note patient has a known history of viral myocarditis. Patient notes that she is to have an outpatient sleep study. Chest x-ray negative for acute cardio pulmonary disease. No leukocytosis, otherwise lab work unremarkable. Troponin negative. Last echocardiogram 10/2022 with LV wall motion normal EF 55 to 60% with mild MR/TR grade 1 diastolic dysfunction. COVID 19 Infection Enterovirus infection Hypoxia secondary to mild H/O COPD, nocturnal hypoxemia---on 2 L supplemental oxygen at bedtime --BioFire positive for COVID-19, enterovirus --CXR:Reticular interstitial opacities are nonspecific. Interstitial edema or bronchitis cannot be excluded. -- Continue dexamethasone Empirically started on doxycycline Does not prefer to be started on remdesivir Titrate oxygen to keep saturations 88 to 92% Nebs as needed Pulmonary hygiene with Mucinex, Flutter valve, Incentive spirometry Clinically improved 2 step: Needs 3 L with supplemental oxygen Hypertensive heart disease Acute on Chronic diastolic heart failure Generalized weakness Reportedly has missed five doses of her home Lasix during her illness Continue Lasix Monitor volume status Type 2 diabetes mellitus: Chronic Ciz-dmifuzd-lvnsbhryd HbA1c 6.3 Hold metformin Continue insulin while hospitalized Monitor BGs HTN: Bradycardia Resume lisinopril on discharge Metoprolol dose decreased to 25 mg twice daily Advised to follow-up with cardiology as outpatient given bradycardia Paroxysmal A-fib: Chronic Continue metoprolol and Coumadin INR 2.7 today History of LLE DVT: Chronic anticoagulation: Chronic Continue Coumadin Factor V Leiden: Follows with heme-onc Nocturnal hypoxia Suspected sleep apnea Plan for outpatient sleep study Hypothyroidism: Chronic stable Continue levothyroxine GERD: Chronic Continue Carafate, PPI DVT Px: Coumadin CODE STATUS: Full code Disposition Home Admission and Anticipated Discharge Date Admission Date: July 21, 2023 Subjective Patient is seen and examined at bedside States feeling well today No new complaints Cough continues to improve Denies any dyspnea, chest pain, dizziness, nausea, vomiting, abdominal pain Had 2 step earlier today Review of Systems Review of Systems: All systems reviewed & are unremarkable except as noted in Subjective Physical Exam Physical Exam: Physical Exam: Vitals signs as noted above General Appearance:Obese, no apparent distress Head: normocephalic, Atraumatic Eyes: normal inspection, EOMI Neck: supple, Trachea midline Respiratory/Chest: Decrease breath sounds, CTA, No accessory muscle use Cardiovascular: S1, S2, No murmur Abdomen/GI:Soft, Non tender, Bowel sounds present Extremities/Musculoskeletal:normal inspection, Chronic LLE edema Neurologic/Psych:AAOX3, grossly no focal neurological deficits Skin: normal color, warm Results & Data Results & Data Vital Signs (Past 12 Hours) Vital Signs Temp Pulse Pulse Pulse Pulse Pulse Pulse 07/25/23 12:00 36.3 C L 57 L 07/25/23 11:38 65 75 81 79 07/25/23 07:45 36.2 C L 67 07/25/23 07:44 07/25/23 05:38 47 L Pulse Resp Resp Resp Resp Resp Resp 07/25/23 12:00 16 07/25/23 11:38 58 L 18 20 20 18 16 07/25/23 07:45 20 07/25/23 07:44 07/25/23 05:38 BP BP Pulse Ox Pulse Ox Pulse Ox Pulse Ox Pulse Ox 07/25/23 12:00 119/86 96 07/25/23 11:38 87 L 87 L 90 86 L 07/25/23 07:45 116/75 92 07/25/23 07:44 07/25/23 05:38 Pulse Ox O2 Del Method O2 Flow Rate O2 Flow Rate O2 Flow Rate O2 Flow Rate 07/25/23 12:00 Nasal Cannula 3 07/25/23 11:38 93 1 2 3 07/25/23 07:45 Nasal Cannula 2 07/25/23 07:44 Nasal Cannula 2 07/25/23 05:38 Laboratory Results BMP 07/25/23 05:27 Sodium 139 Potassium 3.5 Chloride 104 Carbon Dioxide 27 BUN 16 Creatinine 0.69 Glucose 101 H Calcium 8.8
[2023-07-25] MEDS ORDERED: WARFARIN SOD 2.5 MG TAB PO SCH (16:00)
--- NOTE | 2023-07-25 16:49 | Discharge Summary ---
Date of Service July 25, 2023 Admission HPI Per Admitting Provider Ms. Mohan is a 63 year old female that presented to the ED with complaints of SOB. She has been feeling ill for the last 14 days; but remarks worsening over the past 48 hours with noted orthopnea and hypoxia reportedly SpO2 into the mid 70s. She tested positive for COVID at home 5 days ago. She does report a cough but is not bringing anything up. She typically wears oxygen at night historically and has a home oxygen sensor. She reports that she has not taken her Lasix for the past 5 days as she thought it was making her breathing worse. Additional past medical history includes restrictive lung disease, factor V Leiden, diastolic CHF, paroxysmal A-fib, HTN, yva-frqfvuk-nvxniwlxu diabetes, hypothyroidism, and hyperlipidemia. Also do note patient has a known history of viral myocarditis. Patient notes that she is to have an outpatient sleep study. Chest x-ray negative for acute cardio pulmonary disease. No leukocytosis, otherwise lab work unremarkable. Troponin negative. Last echocardiogram 10/2022 with LV wall motion normal EF 55 to 60% with mild MR/TR grade 1 diastolic dysfunction. Patient denies headache, dizziness, visual or auditory changes, abdominal pain or tenderness, chest pain or palpitations, recent falls or trauma. On examination, patient is sitting in a recliner chair in no apparent distress. She is able to hold full meaningful conversation and speak in full complete sentences without becoming dyspneic. She has some hypervolemia and lower extremities left greater than right. She claims that her left leg is typically greater than her right, related to her history of DVT. Patient quit smoking last year. No alcohol or recreational drug use. Suspect patient has been noncompliant with her heart failure medications due to illness. No overt concerns for flash pulmonary edema or decompensated heart failure and suspect that she will return to baseline with resuming her diuretics. Will also continue to supportively treat her COVID symptoms with flutter valve, incentive spirometry and Mucinex. Will obtain bio fire for diagnosis confirmation and BNP. We did talk extensively with the patient regarding taking diuretics and reevaluating how she feels with a goal to return home today however she did state that she feels too weak to return home and does not want to get home and come right back to the ER. Suspect admission 1 to 2 days. Patient will be admitted for further evaluation and management. Please see A/P for further details. Admission Exam Per Admitting Provider See. Dr. Cali's addendum for physical examination findings for lung sounds Neuro: AAOx4, PERRLA, no aphagia, memory changes, CNII-XII grossly intact HEENT: head normocephalic, moist mucus membranes CV: S1/S2, (-) M/G/R, (-) edema, cap refill < 3 seconds. (+) 1 BL LE swelling. L > R leg Resp: On 2LNC GI: Abdomen S/NT/ND, Ax4 bowel sounds, (-) CVA tenderness Musculoskeletal: 5/5 B/L UE strength, 5/5 B/L LE strength. No gait disturbance Skin: (-) rashes , (-) erythema. Psych: euthymic mood Principal Diagnosis COVID 19 Infection Enterovirus infection Hypoxia Bradycardia Discharge Data Allergies Allergy/AdvReac Type Severity Reaction Status Date / Time clindamycin Allergy Hives Verified 05/15/23 12:50 Penicillins Allergy Hives Verified 05/15/23 12:50 Sulfa (Sulfonamide Allergy Hives Verified 05/15/23 12:50 Antibiotics) Consultations 07/21/23 15:33 ED Decision to Admit Stat Procedures Performed Laboratory Results WBC 4.83 K/ul (4.8-10.8) 07/23/23 05:32 RBC 4.33 M/uL (4.20-5.40) 07/23/23 05:32 Hgb 12.5 g/dl (12.0-16.0) 07/23/23 05:32 Hct 36.8 % (37.0-47.0) L 07/23/23 05:32 MCV 85.0 fL (80.0-100.0) 07/23/23 05:32 MCH 28.9 pg (25.0-34.0) 07/23/23 05:32 MCHC 34.0 g/dL (32.0-36.0) 07/23/23 05:32 RDW Std Deviation 40.4 fL (36.4-46.3) 07/23/23 05:32 RDW Coeff of Scout 13.0 % (11.5-14.5) 07/23/23 05:32 Plt Count 322 K/uL (130-400) 07/23/23 05:32 MPV 9.7 fL (9.4-12.4) 07/23/23 05:32 Immature Gran % (Auto) 0.3 % 07/21/23 12:22 Neut % (Auto) 65.2 % 07/21/23 12:22 Lymph % (Auto) 24.0 % 07/21/23 12:22 Morrill % (Auto) 6.9 % 07/21/23 12:22 Eos % (Auto) 3.0 % 07/21/23 12:22 Baso % (Auto) 0.6 % 07/21/23 12:22 Neut # (Auto) 2.18 K/uL (1.40-6.50) 07/21/23 12:22 Lymph # (Auto) 0.80 K/uL (1.20-3.40) L 07/21/23 12:22 Morrill # (Auto) 0.23 K/uL (0.11-0.59) 07/21/23 12:22 Eos # (Auto) 0.10 K/uL (0.00-0.50) 07/21/23 12:22 Baso # (Auto) 0.02 K/uL (0.00-0.20) 07/21/23 12:22 Immature Gran # (Auto) 0.01 K/uL (0.01-0.20) 07/21/23 12:22 Polychromasia 1+ 07/21/23 12:22 Tear Drop Cells 1+ 07/21/23 12:22 PT 28.2 Seconds (9.0-12.0) H 07/25/23 05:27 INR 2.7 (0.9-1.1) H 07/25/23 05:27 APTT 49 Seconds (21-31) H 07/21/23 12:22 PTT Ratio 1.7 07/21/23 12:22 Sodium 139 mmol/L (136-145) 07/25/23 05:27 Potassium 3.5 mmol/L (3.5-5.1) 07/25/23 05:27 Chloride 104 mmol/L (98-107) 07/25/23 05:27 Carbon Dioxide 27 mmol/L (21-32) 07/25/23 05:27 Anion Gap 8 (3-11) 07/25/23 05:27 BUN 16 mg/dl (6-23) 07/25/23 05:27 Creatinine 0.69 mg/dl (0.6-1.2) 07/25/23 05:27 Est Cr Clr Drug Dosing 101.9 ml/min 07/25/23 05:27 Est GFR ( Amer) 106.6 ml/min 07/25/23 05:27 Est GFR (Non-Af Amer) 92.0 ml/min 07/25/23 05:27 BUN/Creatinine Ratio 23.2 (10-20) H 07/25/23 05:27 Glucose 101 mg/dl (70-99(Fasting)) H 07/25/23 05:27 Estimat Average Glucose 134 mg/dl 07/23/23 05:32 Hemoglobin A1c 6.3 % (4.5-5.6) H 07/23/23 05:32 Calcium 8.8 mg/dl (8.6-10.3) 07/25/23 05:27 Phosphorus 3.4 mg/dl (2.5-4.9) D 07/24/23 03:10 Magnesium 2.2 mg/dl (1.7-2.4) 07/23/23 05:32 Total Bilirubin 0.8 mg/dl (0.2-1.0) 07/22/23 04:31 AST 18 U/L (13-39) 07/22/23 04:31 ALT 9 U/L (7-52) 07/22/23 04:31 Alkaline Phosphatase 83 U/L (34-104) 07/22/23 04:31 Troponin I High Sens 3.9 pg/ml (0-14) 07/21/23 12:22 C-Reactive Protein 2.88 mg/dl (0-0.5) H 07/23/23 05:32 B-Natriuretic Peptide 20 pg/ml (0-100) 07/21/23 16:58 Total Protein 7.4 gm/dl (6.0-8.3) 07/22/23 04:31 Albumin 3.8 gm/dl (3.4-5.0) 07/22/23 04:31 Globulin 3.6 gm/dl (2.5-4.0) 07/22/23 04:31 Albumin/Globulin Ratio 1.1 (0.9-2) 07/22/23 04:31 Procalcitonin < 0.05 ng/ml (0-0.5) 07/23/23 05:32 Stl C. cayetanensis PCR Not Detected (NotDetected) 07/24/23 10:45 Stool Rotavirus A PCR Not Detected (NotDetected) 07/24/23 10:45 Stl Adenov F 40/41 PCR Not Detected (NotDetected) 07/24/23 10:45 Stool Astrovirus (PCR) Not Detected (NotDetected) 07/24/23 10:45 Stool Campylobacter PCR Not Detected (NotDetected) 07/24/23 10:45 Stl C. diff Tox B Gene TNP 07/24/23 10:45 Stool Cryptosporidium PCR Not Detected (NotDetected) 07/24/23 10:45 Stl E.coli Shiga Tox PCR Not Detected (NotDetected) 07/24/23 10:45 Stl Enterotoxigenic E PCR Not Detected (NotDetected) 07/24/23 10:45 Stool EPEC (PCR) Not Detected (NotDetected) 07/24/23 10:45 Stool EAEC (PCR) Not Detected (NotDetected) 07/24/23 10:45 Stl E. histolytica PCR Not Detected (NotDetected) 07/24/23 10:45 Stool Giardia Lamblia PCR Not Detected (NotDetected) 07/24/23 10:45 Stool Salmonella PCR Not Detected (NotDetected) 07/24/23 10:45 Stool Sapovirus (PCR) Not Detected (NotDetected) 07/24/23 10:45 Stl P. shigelloides PCR Not Detected (NotDetected) 07/24/23 10:45 Stl Shigella/EIEC PCR Not Detected (NotDetected) 07/24/23 10:45 St Y.enterocolitica PCR Not Detected (NotDetected) 07/24/23 10:45 Stool Vibrio (PCR) Not Detected (NotDetected) 07/24/23 10:45 Stl Vibrio cholerae PCR Not Detected (NotDetected) 07/24/23 10:45 Stl Norovirus GI/GII PCR Not Detected (NotDetected) 07/24/23 10:45 Adenovirus (PCR) Not Detected (NotDetected) 07/21/23 15:20 B. pertussis DNA (PCR) Not Detected (NotDetected) 07/21/23 15:20 B.parapertussis DNA PCR Not Detected (NotDetected) 07/21/23 15:20 C. pneumoniae DNA (PCR) Not Detected (NotDetected) 07/21/23 15:20 Coronavirus OC43 (PCR) Not Detected (NotDetected) 07/21/23 15:20 Coronavirus HKU1 (PCR) Not Detected (NotDetected) 07/21/23 15:20 Coronavirus 229E (PCR) Not Detected (NotDetected) 07/21/23 15:20 SARS-CoV-2 (PCR) Cancelled 07/21/23 15:20 SARS-CoV-2 (PCR) DETECTED (NotDetected) A* 07/21/23 15:20 Coronavirus NL63 (PCR) Not Detected (NotDetected) 07/21/23 15:20 Human Metapneumovir PCR Not Detected (NotDetected) 07/21/23 15:20 Influenza Type A (PCR) Cancelled 07/21/23 15:20 Influenza Type A (PCR) Not Detected (NotDetected) 07/21/23 15:20 Influenza Type B (PCR) Cancelled 07/21/23 15:20 Influenza Type B (PCR) Not Detected (NotDetected) 07/21/23 15:20 M. pneumoniae (PCR) Not Detected (NotDetected) 07/21/23 15:20 Parainfluenza 1 (PCR) Not Detected (NotDetected) 07/21/23 15:20 Parainfluenza 2 (PCR) Not Detected (NotDetected) 07/21/23 15:20 Parainfluenza 3 (PCR) Not Detected (NotDetected) 07/21/23 15:20 Parainfluenza 4 (PCR) Not Detected (NotDetected) 07/21/23 15:20 RSV (RT-PCR) Cancelled 07/21/23 15:20 RSV (PCR) Not Detected (NotDetected) 07/21/23 15:20 Entero/Rhino (PCR) DETECTED (NotDetected) A* 07/21/23 15:20 Impressions Chest X-Ray 07/23/23 07:00 SINGLE VIEW CHEST CLINICAL HISTORY: Congestive heart failure FINDINGS: An AP, portable, upright chest radiograph is compared to study dated 07/21/2023. The heart is enlarged noting atherosclerotic calcification of the thoracic aorta. There is pulmonary vascular congestion. Subpleural reticulation is noted throughout both lungs. Mild bilateral airspace opacities likely represent interstitial edema. Dependent airspace opacities are seen at both lung bases. No large pleural effusion or pneumothorax is seen. The skeletal structures are osteopenic. The bony thorax is grossly intact. IMPRESSION: 1. Cardiomegaly with evidence of congestive failure. Bilateral airspace opacities likely represent mild pulmonary edema. Correlate clinically. 3. No large pleural effusion is seen. ACT 112: Negative or not required by law. Electronically signed by: Kirk Lyon M.D. 07/23/2023 7:37 AM Hospital Course (1) COVID: (2) Hypertensive heart disease with chronic diastolic congestive heart failure: (3) PAF (paroxysmal atrial fibrillation): (4) COPD (chronic obstructive pulmonary disease): (5) Type 2 diabetes mellitus: (6) Chronic anticoagulation: (7) Factor V Leiden: (8) Nocturnal hypoxemia: (9) History of deep venous thrombosis: (10) Hypertension: (11) GERD (gastroesophageal reflux disease): (12) Hypothyroidism: Plan Ms. Mohan is a 63 year old female that presented to the ED with complaints of SOB. She has been feeling ill for the last 14 days; but remarks worsening over the past 48 hours with noted orthopnea and hypoxia reportedly SpO2 into the mid 70s. She tested positive for COVID at home 5 days ago. She does report a cough but is not bringing anything up. She typically wears oxygen at night historically and has a home oxygen sensor. She reports that she has not taken her Lasix for the past 5 days as she thought it was making her breathing worse. Additional past medical history includes restrictive lung disease, factor V Leiden, diastolic CHF, paroxysmal A-fib, HTN, vmf-sudqmdx-dubcpoain diabetes, hypothyroidism, and hyperlipidemia. Also do note patient has a known history of viral myocarditis. Patient notes that she is to have an outpatient sleep study. Chest x-ray negative for acute cardio pulmonary disease. No leukocytosis, otherwise lab work unremarkable. Troponin negative. Last echocardiogram 10/2022 with LV wall motion normal EF 55 to 60% with mild MR/TR grade 1 diastolic dysfunction. COVID 19 Infection Enterovirus infection Hypoxia secondary to mild H/O COPD, nocturnal hypoxemia---on 2 L supplemental oxygen at bedtime --BioFire positive for COVID-19, enterovirus --CXR:Reticular interstitial opacities are nonspecific. Interstitial edema or bronchitis cannot be excluded. -- Continue dexamethasone Empirically started on doxycycline Does not prefer to be started on remdesivir Titrate oxygen to keep saturations 88 to 92% Nebs as needed Pulmonary hygiene with Mucinex, Flutter valve, Incentive spirometry Clinically improved 2 step: Needs 3 L with supplemental oxygen Hypertensive heart disease Acute on Chronic diastolic heart failure Generalized weakness Reportedly has missed five doses of her home Lasix during her illness Continue Lasix Monitor volume status Type 2 diabetes mellitus: Chronic Ghx-ctskhcr-kklbtrsln HbA1c 6.3 Hold metformin Continue insulin while hospitalized Monitor BGs HTN: Bradycardia Resume lisinopril on discharge Metoprolol dose decreased to 25 mg twice daily Advised to follow-up with cardiology as outpatient given bradycardia Paroxysmal A-fib: Chronic Continue metoprolol and Coumadin INR 2.7 today History of LLE DVT: Chronic anticoagulation: Chronic Continue Coumadin Factor V Leiden: Follows with heme-onc Nocturnal hypoxia Suspected sleep apnea Plan for outpatient sleep study Hypothyroidism: Chronic stable Continue levothyroxine GERD: Chronic Continue Carafate, PPI DVT Px: Coumadin CODE STATUS: Full code Disposition Home Total Time Total Time Spent Total Time Spent (In Minutes): 55 minutes Discharge Plan Discharge Items Patient Disposition: Home - Home Health Services Reason For Visit: SOB/COVID + Discharge Diagnosis: COVID 19 Infection Enterovirus infection Hypoxia Bradycardia Activity: Per Instructions section Exercise/Sports: Wait until after follow-up appointment Non-emergency contact: Primary Care Provider Call non-emergency contact if: you have any medication questions, your symptoms worsen, your pain is concerning for you and you have a fever Follow-up/Referrals: Elaine Pierce, [Primary Care Provider] - (Date & Time 07/31/2023 8:20 AM Provider Eunice Cerrato MD Department [facility] ) Diet: Carb Consistent or DM2 and Heart Healthy Addtl Attending Provider Instructions: Follow-up with your primary care physician on 07/31/2023 8:20 AM 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 --Your metoprolol dose is decreased to confirm milligrams twice a day due to low heart rate. Discuss with your physician for further instructions Seek immediate medical attention if your symptoms reoccur or worsen Please take all medications as instructed on discharge list below. Please call if you have any questions or problems. You can reach a [facility] hospitalist on duty at [facility] 24 hours a day by calling [phone] Pending Studies at Discharge: No Stand-Alone Forms: [facility] go[employer] Fetch, Smoking Cessation Medications and DC Order Prescriptions: New doxycycline hyclate 100 mg Capsule 100 mg PO BID Qty: 5 0RF Advanced Probiotic 625 mg (10 billion cell) Capsule 2 cap PO DAILY Qty: 20 0RF prednisone 20 mg tablet 20 mg PO DAILY 3 Days Qty: 3 0RF metoprolol succinate 25 mg Tablet Extended Release 24 Hr 25 mg PO BID Qty: 60 0RF Continued warfarin 5 mg tablet See Rx Instructions PO DAILY Rx Instructions: 2.5mg Mon & Fri; 5mg rest of week orally daily; fluticasone propionate 50 mcg/actuation spray,suspension 2 spray intranasal BID Rx Instructions: administer into each nostril gabapentin 600 mg tablet 600 mg PO TID furosemide [Lasix] 40 mg tablet 40 mg PO QAM Rx Instructions: take an additional tablet as needed for weight gain of 2-3 lbs over night,increased edema albuterol sulfate 90 mcg/actuation HFA aerosol inhaler 2 puff inhalation Q6H PRN (Reason: Shortness Of Breath Or Wheezing) albuterol sulfate 2.5 mg /3 mL (0.083 %) solution for nebulization 2.5 mg inhalation Q4H PRN (Reason: Shortness Of Breath Or Wheezing) lisinopril 2.5 mg tablet 2.5 mg PO QAM ketoconazole 2 % shampoo 1 applic topical Q3D ascorbic acid (vitamin C) 500 mg tablet,chewable 500 mg PO QAM sucralfate [Carafate] 1 gram tablet 1 g PO TID lorazepam 1 mg tablet 1 mg PO HS PRN (Reason: anxiety/sleep) ondansetron 4 mg tablet,disintegrating 4 mg PO Q8H PRN (Reason: Nausea) Rx Instructions: dissolve on tongue cholecalciferol (vitamin D3) 1,250 mcg (50,000 unit) capsule 50,000 unit PO .COMPLEX Rx Instructions: 50,000 units orally every 4 weeks; cetirizine [Zyrtec] 10 mg tablet 10 mg PO QAM levothyroxine 50 mcg tablet 50 mcg PO DAILYBB pantoprazole [Protonix] 40 mg tablet,delayed release (DR/EC) 40 mg PO QAM metformin 500 mg tablet extended release 24 hr 500 mg PO QAM atorvastatin 10 mg tablet 10 mg PO 3XWK Rx Instructions: Takes FRIDAY,FRIDAY,FRIDAY bacitracin zinc 500 unit/gram ointment 1 applic TOPICAL TID betamethasone dipropionate 0.05 % ointment 1 applic TOPICAL HS PRN (Reason: to hands as needed) Pepcid Complete [phone] mg Tablet,Chewable 1 tab PO DAILY Discontinued metoprolol succinate 50 mg tablet extended release 24 hr 50 mg PO BID Qty: 180 3RF Discharge Orders: Discharge Order (Routine); Ordered 07/25/23 Ordered By: Rian Peña/Other Patient Handouts: Prednisone Oral Tablet, Doxycycline Oral Capsule, COVID-19 Home Care, Heart Failure Flare Up Signs, Managing Type 2 Diabetes, Using Oxygen Safely, Traveling with Oxygen, Using an Oxygen Tank at Home Admission Data Admit Date/Time: 07/21/23 15:32 Attending Provider: Rian Keen Admit Provider: Ruth Tian Primary Care Provider: Elaine Pierce Other Providers: Ruth Tian; [place] Other Interventions: Discharge Summary Assessment (RN) Last Done: 07/25/23 14:57
== END 2023-07-25 15:37 | disposition home health service (06) | DRG 177 ==
LOC: ED 11:41 → SUATTDRO 15:32 → EDINP 15:32 → 2W 07-22 22:54